=== PATIENT | male | born 1960 | race Caucasian/White ===

== ENCOUNTER 2019-07-28 11:54 | Emergency (ER) | payer OTHER, SELFPAY ==
[2019-07-28 12:03] VITALS: BP 150/102; PULSE 82; RESP 18; TEMP 36.9; O2SAT 97; BMI 27.1
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
[2019-07-28] MEDS: methylPREDNISolone (DEPO) 80 MG/ML INJ 1 mL IM (12:23)
[2019-07-28 15:12] VITALS: BP 157/107; PULSE 75; RESP 17; O2SAT 95
== END 2019-07-28 12:55 | disposition home or self-care (01) ==
LOC: ER 14:33
PROVIDERS: Emergency Provider Nurse Practitioner Family; Family Provider Internal Medicine
DX: S43.422A Sprain of left rotator cuff capsule, initial encounter (principal); X50.9XXA Other and unspecified overexertion or strenuous movements or postures, initial encounter
CPT/HCPCS: 12345; 96372; 96375; 99282; J1040

== ENCOUNTER → 2020-04-18 11:41 | Outpatient (BNVA) | payer OTHER, SELFPAY | PROVIDERS: Family Provider Internal Medicine; Visit Provider Specialist | DX: M19.012 Primary osteoarthritis, left shoulder (principal); M75.82 Other shoulder lesions, left shoulder | CPT/HCPCS: 73030 ==

== ENCOUNTER 2020-07-03 21:23 | Emergency (ER) | payer OTHER, SELFPAY ==
[2020-07-03 21:30] VITALS: BP 165/114; PULSE 85; RESP 18; TEMP 36.3; O2SAT 98; BMI 28.3
--- NOTE | 2020-07-03 21:54 | XR_ITS ---
WS: [id number] Right hand, 3 views, 07/03/2020 Clinical Data: injury Comparison: None. Findings: No fractures or dislocations are seen. The soft tissues are unremarkable. The joint space s are normal XR/XR hand RT min 3V* [id number] Impression: Negative right hand.
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
[2020-07-03] MEDS: HYDROcodone-acetaminophen 10-325 mg Tablet 1 TAB PO (22:10)
[2020-07-03] MEDS: tetanus-dipt-pertussis 0.5 mL SDV IM (22:10)
[2020-07-03] MEDS: neomycin-poly-bacitracin oint 0.9 gm Pkt 1 APPLIC TOPICAL (23:22)
[2020-07-03 23:23] VITALS: BP 165/10; PULSE 84; RESP 18; O2SAT 97
--- NOTE | 2020-07-04 13:03 | DCPLANNER ---
ecommerce merchandising manager had message to schedule a follow up appointment for patient with wound care. ecommerce merchandising manager called Wound Care, spoke with [facility], gave clinic patients information. ecommerce merchandising manager was told that a follow up appointment could not be scheduled for patient at this time, due to waiting on authorization from the [facility]. Patient has VA insurance, supportive employment case manager emailed [facility] with [facility], to let the [facility] know that patient was seen in the ER and that patient needed a follow up with wound care. When clinic gets the authorization then clinic will schedule a follow up appointment.
--- NOTE | 2020-07-11 11:11 | DCPLANNER ---
Patient had a follow up appointment scheduled for 07.10.20 with Wound Care - patient did attend appointment.
== END 2020-07-03 23:15 | disposition home or self-care (01) ==
PROVIDERS: Emergency Provider Emergency Medicine; PCP Internal Medicine
DX: T23.001A Burn of unspecified degree of right hand, unspecified site, initial encounter (principal); W86.8XXA Exposure to other electric current, initial encounter; Z23 Encounter for immunization
CPT/HCPCS: 73130; 90471; 90715; 99283

== ENCOUNTER 2020-07-10 10:00 | Outpatient (CLI) | payer OTHER, SELFPAY | END 2020-07-10 10:01 | disposition home or self-care (01) | LOC: WOUND 10:01 | PROVIDERS: PCP Internal Medicine; Visit Provider Thoracic Surgery (Cardiothoracic Vascular Surgery) | DX: T23.221A Burn of second degree of single right finger (nail) except thumb, initial encounter (principal); W86.8XXA Exposure to other electric current, initial encounter | CPT/HCPCS: 11042; G0463 ==

== ENCOUNTER 2020-07-12 11:40 | Outpatient (RCR) | payer OTHER, SELFPAY | END 2020-07-25 23:59 | disposition home or self-care (01) | LOC: SOT 11:40 | PROVIDERS: PCP Family Medicine; Referring Provider Nurse Practitioner Family; Visit Provider Nurse Practitioner Family | DX: T23.001D Burn of unspecified degree of right hand, unspecified site, subsequent encounter (principal) | CPT/HCPCS: 97110; 97165 ==

== ENCOUNTER 2020-07-17 10:16 | Outpatient (CLI) | payer OTHER, SELFPAY | END 2020-07-17 10:17 | disposition home or self-care (01) | LOC: WOUND 10:16 | PROVIDERS: PCP Family Medicine; Visit Provider Thoracic Surgery (Cardiothoracic Vascular Surgery) | DX: Z09 Encounter for follow-up examination after completed treatment for conditions other than malignant neoplasm (principal) | CPT/HCPCS: 99212 ==

== ENCOUNTER 2021-03-16 22:43 | Emergency (ER) | payer OTHER, SELFPAY ==
--- NOTE | 2021-03-16 22:45 | ECG_ITS ---
[facility] Test Date: 2021-03-16 Pat Name: Marcelo Schroeder Department: Room: Gender: Male Journalism Teacher: : 1960 Requested By: Meera Patel Order Number: [id number] Anni MD: Hetal Herron M.D. Measurements Intervals [place] Rate: 70 P: 50 [place]: 148 QRS: -18 QRSD: 103 T: 29 QT: 385 QTc: 417 Interpretive Statements SINUS RHYTHM INCOMPLETE RIGHT BUNDLE BRANCH BLOCK [90+ ms QRS DURATION, TERMINAL R IN V1/V2, 40+ ms S IN I/aVL/V4/V5/V6] MODERATE VOLTAGE CRITERIA FOR LVH, CONSIDER NORMAL VARIANT [MEETS CRITERIA IN ONE OF: R(aVL), S(V1), R(V5), R(V5/V6)+S(V1)] Compared to ECG 03/20/2019 00:32:25 Incomplete right bundle-branch block now present Electronically Signed On 03-17-2021 15:52:55 SECTION LABORER by Hetal Herron M.D. [id number]
--- NOTE | 2021-03-16 22:45 | XRR_ITS ---
PROCEDURE INFORMATION: Exam: XR Chest Exam date and time: 03/16/2021 10:45 PM Age: 60 years old Clinical indication: Pain; Chest pressure; Additional info: Cp TECHNIQUE: Imaging protocol: XR of the chest. Views: 1 view. COMPARISON: CR Chest 1 [place] [id number] 03/19/2019 11:10 PM FINDINGS: Lungs: Unremarkable. No consolidation. Pleural spaces: Unremarkable. No pleural effusion. No pneumothorax. Heart/Mediastinum: Cardiomegaly. Bones/joints: Unremarkable. XR/XR chest 1V portable [id number] IMPRESSION: Cardiomegaly, negative for infiltrate Radiation Dose CTDIVOL = (mGy): DLP = (mGy-cm)
[2021-03-16 22:46] VITALS: BP 167/105; PULSE 78; RESP 22; TEMP 37; O2SAT 98; BMI 29.0
--- NOTE | 2021-03-16 23:03 | ED_ITS ---
HPI - Chest Pain General: Chief Complaint: Chest Pain Stated Complaint: CHEST PAINS Time Seen by Provider: 03/16/21 22:59 Source: patient Mode of arrival: ambulatory Limitations: no limitations History of Present Illness: HPI narrative: 60-year-old male states that he is having chest pain tonight at 9 PM he states pain started left chest sharp pain that radiated to his left shoulder and jaw. Had some nausea denies any diaphoresis. He states he has had increased pain with deep inspiration. No history of heart disease or pulmonary embolism he does have a high blood pressur e. He denies any vomiting diarrhea states pain is currently a 6 out of 10. Associated symptoms: Deny abdominal pain, dyspnea, fever(s), nausea or vomiting Review of Systems Const: Denies: fever(s), chills, body aches or change in appetite Eyes: Denies: blurry vision or eye discomfort ENMT: Denies: throat pain or dental pain Card: Reports: chest pain Resp: Denies: dyspnea GI: Denies: abdominal pain, nausea, vomiting or diarrhea : Denies: dysuria Musc: Denies: neck pain or back pain Skin/Breast: Denies: rash Neuro: Denies: headache(s) Psych: Denies: depression Pool/Lymph: Denies: easy bruising All/Imm: Denies: urticaria PFSH ED PFSH: Social History Smoking and tobacco status: light tobacco smoker (chew not smoke) Alcohol intake: current Alcohol intake frequency: 0-2 Drinks per Day Physical Exam Const: COMMON NORMALS: no acute distress, patient oriented x3 and healthy appearing HENMT: COMMON NORMALS: normocephalic and atraumatic HEAD & SCALP: normocephalic and atraumatic Eye: COMMON NORMALS: Equal, round and reactive pupils present and EOMs intact bilaterally PUPIL: Yes Equal, round and reactive pupils present Neck/C-Spine: COMMON NORMALS: full ROM and supple Chest: COMMONS NORMALS: normal inspection of the chest and normal palpation of entire chest wall Resp: COMMON NORMALS: normal respiratory effort, No retractions, No use of accessory muscles and clear to auscultation bilaterally AUSCULTATION: clear to auscultation bilaterally Cardio: COMMON NORMALS: regular rate, regular rhythm and No murmurs present (Cardio) RATE: regular rate RHYTHM: regular rhythm GI: COMMON NORMALS: Normal to inspection, nondistended, normoactive bowel sounds present, Soft to palpation, non-tender and no masses PALPATION: Yes Soft to palpation Extremity: COMMON NORMALS: normal to inspection and full ROM Neuro: COMMON NORMALS: patient oriented x3, moves all extremities and no focal motor deficits Psych: COMMON NORMALS: mental status grossly normal, Normal thought process present and cooperative THOUGHT PROCESS: Normal thought process present Skin: COMMON NORMALS: no rashes or lesions noted and no wounds GENERAL SKIN EXAM: no rashes or lesions noted Course Vital Signs: Vital signs: Vital Signs Temperature 98.6 F 03/16/21 23:30 Pulse Rate 67 03/17/21 02:24 Respiratory Rate 16 03/17/21 02:24 Blood Pressure 141/94 03/17/21 02:24 Pulse Oximetry 100 03/17/21 02:24 MDM - Chest Pain MDM Narrative: Medical decision making narrative: Patient presents here with chest pain and feels much improved. Initial and repeat troponins along with D- dimer EKGs are all normal. He has no signs of acute coronary syndrome aortic dissection or pulmonary embolism. He feels much improved and is stable for discharge is to follow-up his PCP in 2 to 4 days and return if worsening he understands and agrees to plan. Lab Data: Labs: Lab Results 03/16/21 03/16/21 03/16/21 23:06 23:06 23:06 WBC 7.4 10^3/uL 10^3/ uL (4.0-10.0) RBC 5.32 10^6/uL H 10 ^6/uL (4.1-5.3) Hgb 16.0 g/dL g/dL (11.7-16.6) Hct 45.9 % % (42.0-52.0) MCV 86.3 fl fl (80-94) MCH 30.1 pg pg (28.0-34.0) MCHC 34.9 g/dL g/dL (30.0-36.0) RDW 12.1 % % (12.1-15.1) Plt Count 244 10^3/cmm 10^3 /cmm (130-400) MPV 9.5 fL fL (7.4-10.4) Neut % (Auto) 55.0 % % Lymph % (Auto) 32.9 % % [place] % (Auto) 7.1 % % Eos % (Auto) 4.2 % % Baso % (Auto) 0.7 % % Neut # (Auto) 4.08 10^3/uL 10^3 /uL (1.8-7.7) Lymph # (Auto) 2.4 10^3/uL 10^3/ uL (0.8-4.8) [place] # (Auto) 0.5 10^3/uL 10^3/ uL (0.2-0.9) Eos # (Auto) 0.3 10^3/uL 10^3/ uL (0.0-0.8) Baso # (Auto) 0.1 10^3/uL 10^3/ uL (0.0-0.1) Nucleated RBC % (a uto) 0 % % Nucleated RBCs # 0.0 /100WBC /100W BC D-Dimer Sodium 137 mmol/L mmol/L (136-145) Potassium 3.4 mmol/L L mmol /L (3.5-5.1) Chloride 102 mmol/L mmol/L (98-107) Carbon Dioxide 20 mmol/L L mmol/ L (22-29) Anion Gap 18.4 (5-19) BUN 11 mg/dL mg/dL (8-23) Creatinine 1.0 mg/dL mg/dL (0.7-1.2) GFR Calculation 76.0 mL/min L mL/ min (90-130) Glucose 126 mg/dL H mg/dL (65-115) Calculated Osmolal ity 285 mOsm/kg mOsm/ kg (285-295) Calcium 8.8 mg/dL mg/dL (8.5-10.5) Total Bilirubin 0.8 mg/dL mg/dL (0.15-1.2) AST 14 U/L U/L (0-40) ALT 16 U/L U/L (0-41) Alkaline Phosphata se 70 IU/L IU/L (40-130) Troponin T Baselin e 11 ng/L ng/L (0-15) Troponin T 120 Min [place] Troponin T Total Protein 6.6 g/dL g/dL (6.6-8.7) Albumin 4.3 g/dL g/dL (3.5-5.2) Globulin 2.3 g/dL g/dL (1.3-4.6) 03/16/21 03/17/21 23:06 01:13 WBC RBC Hgb Hct MCV MCH MCHC RDW Plt Count MPV Neut % (Auto) Lymph % (Auto) [place] % (Auto) Eos % (Auto) Baso % (Auto) Neut # (Auto) Lymph # (Auto) [place] # (Auto) Eos # (Auto) Baso # (Auto) Nucleated RBC % (a uto) Nucleated RBCs # D-Dimer <= 0.27 ug/mIFEU ug/mIFEU (0-0.59) Sodium Potassium Chloride Carbon Dioxide Anion Gap BUN Creatinine GFR Calculation Glucose Calculated Osmolal ity Calcium Total Bilirubin AST ALT Alkaline Phosphata se Troponin T Baselin e Troponin T 120 Min [place] 10.29 ng/L ng/L (0-15) Delta Troponin T -0.71 ABS# L ABS# (0-10) Total Protein Albumin Globulin EKG Data^: EKG 1: Attestation: I personally reviewed and interpreted this EKG as follows: EKG interpretation date: 03/16/21 EKG interpretation time: 22:50 Interpretation: nsr hr [address] or t wave abnormalities qrs 02 qtc 406 EKG 2: Attestation: I personally reviewed and interpreted this EKG as follows: EKG interpretation date: 03/16/21 EKG interpretation time: 23:07 Interpretation: nsr hr [address] or t wave abnormalities qrs 103 qtc 406 EKG 3: Attestation: I personally reviewed and interpreted this EKG as follows: EKG interpretation date: 03/17/21 EKG interpretation time: 00:50 Interpretation: nsr hr [address] or t wave abnormalities qrs 107 qtc 417 Discharge Plan Discharge Patient Disposition: Home Clinical Impression: Chest pain Qualifiers: Chest pain type: unspecified Qualified Code(s): R07.9 - Chest pain, unspecified Condition: Stable Prescriptions: No Action meloxicam 15 mg tablet 15 mg PO DAILY Qty: 30 RF: 0 lisinopril 20 mg tablet 20 mg PO DAILY RF: 0 tramadol 50 mg tablet 50 mg PO Q6H PRN (Reason: pain) Qty: 10 RF: 0 [place] 5-325 mg tablet 1 tab PO Q6H PRN (Reason: pain) Qty: 14 RF: 0 Discharge Orders: Discharge ED (Routine); Ordered 03/17/21 Ordered By: Meera Patel Referrals: Nancy Bryant MD [Primary Care Provider] - Discharge Diet: Advance as tolerated Discharge Activity: Resume usual activity Patient Instructions: Chest Pain (ED) Coding Level of Care Code ED 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
[2021-03-16 23:13] VITALS: BP 141/94; PULSE 71; RESP 18; O2SAT 99
[2021-03-16 23:15] VITALS: BP 141/94; PULSE 71; RESP 18; TEMP 37; O2SAT 99
[2021-03-16 23:16] LABS: Basophils # 0.1 10^3/uL (0.0-0.1); Basophils % 0.7 %; Eosinophils # 0.3 10^3/uL (0.0-0.8); Eosinophils % 4.2 %; Hematocrit 45.9 % (42.0-52.0); Lymphocytes # 2.4 10^3/uL (0.8-4.8); Lymphocytes % 32.9 %; Mean Corpuscular HGB Conc 34.9 g/dL (30.0-36.0); Mean Corpuscular Hemoglobin 30.1 pg (28.0-34.0); Mean Corpuscular Volume 86.3 fl (80-94); Mean Platelet Volume 9.5 fL (7.4-10.4); Monocytes # 0.5 10^3/uL (0.2-0.9); Monocytes % 7.1 %; Neutrophils # 4.08 10^3/uL (1.8-7.7); Nucleated Red Blood Cells % 0 %; Platelet Count 244 10^3/cmm (130-400); Red Blood Count 5.32 10^6/uL (4.1-5.3); Red Cell Distribution Width 12.1 % (12.1-15.1); White Blood Count 7.4 10^3/uL (4.0-10.0)
[2021-03-16] MEDS: aspirin 81 mg Chew Tablet 324 MG PO (23:29)
[2021-03-16] MEDS: nitroglycerin 0.4 mg sublingual Tablet SUBLINGUAL (23:29)
[2021-03-16 23:30] VITALS: BP 141/94; PULSE 71; RESP 18; TEMP 37; O2SAT 99
[2021-03-16 23:37] LABS: Troponin(5th) Baseline 11 ng/L (0-15)
[2021-03-16 23:40] LABS: Alanine Aminotransferase 16 U/L (0-41); Albumin Level 4.3 g/dL (3.5-5.2); Alkaline Phosphatase 70 IU/L (40-130); Anion Gap 18.4 (5-19); Aspartate Amino Transferase 14 U/L (0-40); Blood Urea Nitrogen 11 mg/dL (8-23); Calcium 8.8 mg/dL (8.5-10.5); Carbon Dioxide 20 mmol/L (22-29); Chloride 102 mmol/L (98-107); Globulin 2.3 g/dL (1.3-4.6); Glucose 126 mg/dL (65-115); Osmolality Calculated 285 mOsm/kg (285-295); Potassium 3.4 mmol/L (3.5-5.1); Sodium 137 mmol/L (136-145); Total Bilirubin 0.8 mg/dL (0.15-1.2); Total Protein 6.6 g/dL (6.6-8.7)
--- NOTE | 2021-03-17 00:03 | PC.NURSE ---
Pt. resting with eyes closed in room.
[2021-03-17 00:04] VITALS: BP 141/94; PULSE 67; RESP 20; O2SAT 97
[2021-03-17] MEDS: acetaminophen 325 mg Tablet 650 MG PO (00:22)
[2021-03-17 00:23] LABS: D Dimer <= 0.27 ug/mIFEU (0-0.59)
--- NOTE | 2021-03-17 00:45 | ECG_ITS ---
[facility] Test Date: 2021-03-17 Pat Name: Marcelo Schroeder Department: Room: Gender: Male Visual Artist: : 1960 Requested By: Meera Patel Order Number: [id number] Anni MD: Hetal Herron M.D. Measurements Intervals [place] Rate: 61 P: 48 [place]: 151 QRS: -9 QRSD: 107 T: 12 QT: 414 QTc: 418 Interpretive Statements SINUS RHYTHM INCOMPLETE RIGHT BUNDLE BRANCH BLOCK [90+ ms QRS DURATION, TERMINAL R IN V1/V2, 40+ ms S IN I/aVL/V4/V5/V6] MINIMAL VOLTAGE CRITERIA FOR LVH, CONSIDER NORMAL VARIANT [MEETS CRITERIA IN ONE OF: R(aVL), S(V1), R(V5), R(V5/V6)+S(V1)] Compared to ECG 03/20/2019 00:32:25 Incomplete right bundle-branch block now present Electronically Signed On 03-17-2021 15:55:10 SHANK SCOURER by Hetal Herron M.D. [id number]
[2021-03-17 01:39] LABS: Troponin 5 2HR 10.29 ng/L (0-15)
[2021-03-17 01:42] LABS: Troponin 5 2HR Delta -0.71 ABS# (0-10)
[2021-03-17 02:24] VITALS: BP 141/94; PULSE 67; RESP 16; O2SAT 100
== END 2021-03-17 02:27 | disposition home or self-care (01) ==
PROVIDERS: Emergency Provider Emergency Medicine; PCP Family Medicine
DX: R07.9 Chest pain, unspecified (principal); F17.220 Nicotine dependence, chewing tobacco, uncomplicated
CPT/HCPCS: 71045; 80053; 84484; 85025; 85378; 93005; 99284

== ENCOUNTER → 2021-08-29 14:07 | Outpatient (BNVA) | payer OTHER, SELFPAY | PROVIDERS: PCP Family Medicine; Visit Provider Internal Medicine | DX: R07.9 Chest pain, unspecified (principal); I10 Essential (primary) hypertension; F17.220 Nicotine dependence, chewing tobacco, uncomplicated; R58 Hemorrhage, not elsewhere classified | CPT/HCPCS: 80048; 83880; 85025; 99214 ==

== ENCOUNTER 2021-09-09 11:51 | Outpatient (CLI) | payer OTHER, SELFPAY ==
[2021-09-09 12:54] LABS: Prothrombin Time (Patient) 13.5 Seconds (12.0-15.1)
== END 2021-09-09 11:52 | disposition home or self-care (01) ==
LOC: LAB 11:53
PROVIDERS: PCP Family Medicine; Visit Provider Internal Medicine
DX: R58 Hemorrhage, not elsewhere classified (principal)
CPT/HCPCS: 85610

== ENCOUNTER 2021-09-11 08:54 | Outpatient (CLI) | payer OTHER, SELFPAY ==
[2021-09-11] VITALS (19 sets, daily range): BP systolic 104–140; BP diastolic 61–90; PULSE 54–72; RESP 11–22; TEMP 36.7; O2SAT 97; BMI 29.0
--- NOTE | 2021-09-11 09:36 | XACV_ITS ---
Exam Room: 2 Ht: 183 cm Wt: 97 kg BSA: 2.24 m2 Gender: Male : 1960 Any Known Allergies: Benadryl Exam Priority: Routine Procedure(s): Procedure Description: Diagnostic procedure Procedure Description: Left Heart Catheterization Procedure Description: Coronary Angiography Diagnostic Cath Status: Elective Diagnostic Findings * 61-year-old man with past medical history of hypertension has been referred for evaluation of chest pain. He was seen in the emergency room in February when he had chest pain and was recommended to undergo stress test. Patient says that he gets chest pain whenever he walks a certain distance. It radiates to the left arm. His functional capacity is decreasing and the discomfort is worsening over time. Plan for left heart cath with possible percutanous coronary intervention. * Left Main has no disease. * Circumflex has no disease. * Right Coronary Artery has no disease. * Proximal Left Anterior Descending: minimal 30% stenosis, CHINO: 3 flow. * 2nd Diagonal: minimal 30% stenosis, [place]: 3 flow. * Coronary angiography shows right dominance. Conclusions 1. Non-obstructive coronary artery disease. Recommendations * Aggressive risk factor modification. * Outpatient cardiology follow up in 4 weeks. Interventional RX Recommendation: medical therapy and/or counseling Diagnostic RX Recommendation: medical therapy and/or counseling Pressures Phase:Rest AO : 118 / 74 ( 91 ) @ 11:53:00 AM 119 / 55 ( 83 ) @ 11:53:00 AM LV : 127 / 1 / 13 @ 11:53:00 AM 130 / 3 / 16 @ 11:53:00 AM Valves Phase:DefaultPhase AV : 0.0 @ 10:58:54 AM 0.0 @ 10:58:54 AM AV Mean Gradient: 0.0 @ 10:58:54 AM Clinical Evaluation EBL: 5mL-10mL Procedural Details Procedure Consent Obtained. Pre-Procedure Time Out. Identified patient by full name and date of as verbalized by the patient/guarantor. Does the consent match the physician's order: Yes. Accurate & Complete Informed Consent: Yes. Inpatient/Outpatient History & Physical on Chart: Yes. If H&P is completed, is and addenduem needed: No; If yes, is the addendum complete: N/A. Visualize and Verify Site with Patient/Guarantor: N/A. Relevant Radiology Images available: Yes. The risks, benefits, and alternatives of sedation and/or procedure were discussed by physician. The patient agrees to continue. Procedure started. [facility] Clinical Fraility Score: 3: Managing Well. Operations Support Professionals Indications: New Onset Angina. Chest Pain Symptom Assessment: Typical Angina Symptoms. Cardiovascular Instability: No. Correct patient, site and procedure confirmed by cath team. PERRLA. Strong, equal hand finance director bilaterally. Lungs clear x 5 lobes. IV Site on Arrival: 18 gauge in the left anticubital. IV Fluids: 0.9% NaCl at KVO. 0 mL infused prior to laboratory scientist. Pre Procedural Pulses: bilateral dorsalis pedis was 3+. Pre Procedural Pulses: bilateral posterior tibial was 1+. Pre Procedural Pulses: bilateral radial was 3+. Oxygen started at 2liters/min via nasal canula. right groin was prepped with chloroprep then draped in the usual sterile fashion. right radial was prepped with chloroprep then draped in the usual sterile fashion. Physician notified. Baseline sample Acquired. HR: 57 BPM. Patient's family in CPRU. Dr. Velasco will update at completion of the procedure. Physician arrived. Physician scrubbed in. Physician scrubbed in. Correct Patient: Yes; Correct Procedure: Yes; Correct Site: Yes; Correct Patient Position: Yes; Correct Supplies: Yes; Dried Flammable Prep: Yes; Blood Products Available: N/A;. Immediate Pre-Procedure Time Out. Lidocaine 1% infiltrated to the right radial. Arterial access obtained. A 5 [place] islander TIG catheter in over wire. Multiple views taken of right coronary artery. Catheter redirected to the LCA. Multiple views taken of left coronary artery. Catheter redirected to the LV. EDP Sample taken: LV 127/1,13; HR: 70 BPM; SpO2: 92%. Pullback taken: LV 130/3,16; AO 118/74(91); Mean: 0mmHg, Peak to Peak: 0mmHg, SEP: 8sec/min; HR: 63 BPM; SpO2: 96%. Catheter removed over the standard wire. Dr. Velasco scrubbed out. A TR Band was successful obtaining hemostatsis at the Right Radial artery insertion site. TR band placed. Hemostasis obtained. Post Procedure: Pulses reassessed and unchanged. PERRLA. Strong, equal hand finance director bilaterally. No VTE prophylaxis required. Medication's Wasted: Lidocaine 1% = 7 mL. Medication's Wasted: Nitro = 49.8 mg. Medication's Wasted: Heparin = 1000 units. Total IV fluids: 50 mL. Post-op diagnosis: normal coronaries. Complications: none. Estimated blood loss: 5mL-10mL. Responsiveness - Normal response to verbal stimuli; alert and oriented, PERRLA. Airway - Unaffected, no intervention required; spontaneous ventilation. Circulation: W/N/L, pulses unchanged. Nausea/Vomiting: No. Procedure completed. Patient transferred by wheelchair to 1st floor. Vital chart was stopped. Access Site Site: Right Radial artery Sheath Size: 6 Fr Hemostasis Method: TR Band Hemostasis Success: Successful Procedure Medications Start: 10:47 AM Stop: 10:47 AM Medication: Versed Amount: 2 mg Route: I.V. Start: 10:47 AM Stop: 10:47 AM Medication: Fentanyl Amount: 50 mcg Route: I.V. Start: 10:47 AM Stop: 10:47 AM Medication: Nitrogylcerin Amount: 200 mcg Route: I.A. Start: 10:47 AM Stop: 10:47 AM Medication: Fentanyl Amount: 25 mcg Route: I.V. Start: 10:50 AM Stop: 10:50 AM Medication: Heparin Amount: 5000 units Route: I.V. Start: 10:50 AM Stop: 10:50 AM Medication: Fentanyl Amount: 25 mcg Route: I.V. I, the attending physician, have reviewed and verified all procedure medications. Yes, all medications given per verbal order History/Risk Factors Hypertension: Yes Dyslipidemia: No Peripheral Arterial Disease (PAD): No Myocardial Infarction (CA): No Obesity: Yes Renal Disease: No Tobacco Use: Current/Recent(w/in 1 year) Prior Interventions PCI: No CABG: No Valve Surgery: No Report Signatures Finalized by Adam Velasco MD on 09/22/2021 11:46 PM
--- NOTE | 2021-09-11 10:39 | W.PM.OPSUD ---
Surgery/Procedure H&P Update DATE OF PROCEDURE: September 11, 2021 DATE H&P PERFORMED: 08/29/21 H&P UPDATE INFORMATION: I have reviewed H&P completed within last 30 days, I have examined patient prior to procedure and No changes to prior documentation PREOP DIAGNOSIS: Worsening angina PRIMARY INDICATION FOR PROCEDURE: Worsening angina PLANNED PROCEDURE: Operation Date: 09/11/21 10:00 Proposed Procedures p Cardiac Catheterization(Left) - Adam Velasco M.D PATIENT REASSESSED PRIOR TO SEDATION, WITH NO CHANGE NOTED: Yes PHYSICAL EXAM: alert, oriented x 3, clear to auscultation bilaterally and regular rate & rhythm AIRWAY EVAL/ANESTHESIA PLAN: ASA III, Monitored Anesthesia, Local Anesthesia, Risks, benefits & alternatives of sedation and/or procedure discussed and Patient agrees to continue as planned
[2021-09-11] MEDS: sodium chloride 0.9% 1,000 ML 75 ML IV (11:45)
--- NOTE | 2021-09-11 16:05 | PC.NURSE ---
Discharge Note Patient discharged to home via private vehicle accompanied by . Discharge instructions reviewed with patient and/or registered representative. Mobile pharmacy medications and/or prescriptions provided. Belongings/home medications returned. Post angiogram homecare instructions discuss to pt. discharge papers provided. called centralized scheduling dept for pt's asking when he is going to have his echocardiogram schedule. Verified the schedule and pt is notified that it will be on october 04 at 11:15 am. pt verbalizes understanding.
== END 2021-09-11 16:05 ==
LOC: CCL 08:59 → CSU 11:11
PROVIDERS: PCP Family Medicine; Visit Provider Internal Medicine
DX: I25.10 Atherosclerotic heart disease of native coronary artery without angina pectoris (principal); I10 Essential (primary) hypertension; E78.5 Hyperlipidemia, unspecified; E66.9 Obesity, unspecified; Z68.29 Body mass index [BMI] 29.0-29.9, adult; Z79.82 Long term (current) use of aspirin; F17.220 Nicotine dependence, chewing tobacco, uncomplicated; Z82.49 Family history of ischemic heart disease and other diseases of the circulatory system
CPT/HCPCS: 36415; 93452; 93458; 96360; 99152; C1769; C1887; C1894; G0378; J1644; J2250; J3010; J3490; J7030; Q9967

== ENCOUNTER → 2021-09-25 12:52 | Outpatient (BNVA) | payer OTHER, SELFPAY | PROVIDERS: PCP Family Medicine; Visit Provider Internal Medicine | DX: Z09 Encounter for follow-up examination after completed treatment for conditions other than malignant neoplasm (principal); R07.9 Chest pain, unspecified; I10 Essential (primary) hypertension; F17.220 Nicotine dependence, chewing tobacco, uncomplicated | CPT/HCPCS: 99214 ==

== ENCOUNTER 2021-10-04 11:09 | Outpatient (CLI) | payer OTHER, SELFPAY ==
--- NOTE | 2021-10-04 11:15 | USCV_ITS ---
Marcelo Schroeder Age: 61 Gender: M : 1960 Exam Date: 10/04/2021 11:51 Ordering Phys: Adam Velasco M.D ([email or web address]) Technologist: Samuel Temple [place] [facility] [place]: sob BP: 140 / 76 HR: 59 Rhythm: Sinus Technical Quality: Adequate MEASUREMENTS (Male / Female) Normal Values 2D ECHO LV Diastolic Diameter PLAX 3.5 cm 4.2 - 5.9 / 3.9 - 5.3 cm LV Systolic Diameter PLAX 2.0 cm IVS Diastolic Thickness 1.1 cm 0.6 - 1.0 / 0.6 - 0.9 cm IVS Systolic Thickness 1.1 cm LVPW Diastolic Thickness 1.3 cm 0.6 - 1.0 / 0.6 - 0.9 cm LVPW Systolic Thickness 1.5 cm LVOT Diameter 2.0 cm LV Ejection Fraction 2D Teich 74.8 % LV Ejection Fraction MOD 2C 70.0 % LV Ejection Fraction 2C AL 70.7 % LA Diameter 3.5 cm LA Width 3.4 cm LA Height 4.0 cm RA Width 3.3 cm RA Height 4.1 cm Aorta at Sinotubular Diameter 2.6 cm IVC Diameter 1.6 cm M-MODE Aortic Annulus Diameter 2.7 cm LA Ao Ratio MM 1.2 MV E Point Septal Separation 0.4 cm DOPPLER AV Peak Velocity 113.7 cm/s LVOT Peak Velocity 104.0 cm/s AV Area Cont Eq vti 2.7 cm squared AV Area Cont Eq pk 3.0 cm squared MV Peak Velocity 87.0 cm/s MV Area PHT 4.1 cm squared Mitral E to A Ratio 0.9 MV E' Velocity 29.5 cm/s Mitral E to MV E' Ratio 7.7 Mitral E to LV E' Lateral Ratio 7.7 Mitral E to LV E' Septal Ratio 7.8 TR Peak Velocity 308.8 cm/s TR Peak Gradient 38.2 mmHg TR Mean Velocity 229.8 cm/s TR Mean Gradient 23.3 mmHg TR Velocity Time Integral 84.9 cm Right Atrial Pressure 3.0 mmHg Pulmonary Artery Systolic Pressu 41.2 mmHg RV Acceleration Time 0.2 s RV Ejection Time 0.2 s RV AcT/ET 0.9 FINDINGS Left Ventricle Normal left ventricular size. LV systolic function is normal with EF of 55-60%. No regional wall motion abnormalities. Grade 1 diastolic dysfunction Right Ventricle The right ventricle is normal in size and function. Right Atrium The right atrium is normal in size. Left Atrium The left atrium is normal in size. Mitral Valve Structurally normal mitral valve without significant stenosis or prolapse. There is trace mitral regurgitation. Aortic Valve Structurally normal aortic valve without significant sclerosis or stenosis. There is no aortic regurgitation. Tricuspid Valve Structurally normal tricuspid valve without significant stenosis. Mild tricuspid regurgitation. Insufficient TR jet to calculate RVSP Pulmonic Valve Not well visualized. Pericardium Normal pericardium without effusion. Aorta Normal ascending aorta dimension. IVC CONCLUSIONS LV systolic function is normal wtih EF of 55-60% Grade 1 diastolic dysfunction Trace mitral regurgitation Mild tricuspid regurgitation No comparison studies are available Adam Velasco MD (Electronically Signed) Final Date: 11 October 2021 22:06 S
== END 2021-10-04 11:10 | disposition home or self-care (01) ==
LOC: RAD 11:12
PROVIDERS: PCP Family Medicine; Visit Provider Internal Medicine
DX: R06.02 Shortness of breath (principal); I07.1 Rheumatic tricuspid insufficiency
CPT/HCPCS: 93306

== ENCOUNTER → 2022-07-18 14:47 | Outpatient (BNVA) | payer OTHER, SELFPAY | PROVIDERS: PCP Family Medicine; Referring Provider Family Medicine; Visit Provider Student in an Organized Health Care Education/Training Program | DX: M77.01 Medial epicondylitis, right elbow (principal); M77.02 Medial epicondylitis, left elbow; G56.23 Lesion of ulnar nerve, bilateral upper limbs; M79.641 Pain in right hand | CPT/HCPCS: 73080; 73130; 99204 ==

== ENCOUNTER → 2022-09-24 14:07 | Outpatient (BNVA) | payer OTHER, SELFPAY | PROVIDERS: PCP Family Medicine; Referring Provider Student in an Organized Health Care Education/Training Program; Visit Provider Specialist | DX: G56.23 Lesion of ulnar nerve, bilateral upper limbs (principal) | CPT/HCPCS: 95910; 95912 ==

== ENCOUNTER → 2022-10-10 07:22 | Outpatient (BNVA) | payer OTHER, SELFPAY | PROVIDERS: PCP Family Medicine; Visit Provider Student in an Organized Health Care Education/Training Program | DX: G56.21 Lesion of ulnar nerve, right upper limb (principal) | CPT/HCPCS: 99214 ==

== ENCOUNTER 2022-11-04 05:44 | Day surgery (SDC) | payer OTHER, SELFPAY ==
[2022-11-04] VITALS (8 sets, daily range): BP systolic 109–177; BP diastolic 79–108; PULSE 56–82; RESP 16–19; TEMP 36.1–36.2; O2SAT 94–97; BMI 28.2
[2022-11-04] MEDS: sodium chloride 0.9% 1,000 ML 30 ML IV (06:07)
[2022-11-04] MEDS: ketorolac 30 mg/mL INJ IVP (06:08)
[2022-11-04] MEDS: acetaminophen 1,000 MG/100 ML PIGGYBACK 400 MG IV (06:08)
--- NOTE | 2022-11-04 06:45 | W.PM.OPSUD ---
Surgery/Procedure H&P Update DATE OF PROCEDURE: November 04, 2022 DATE H&P PERFORMED: 10/10/22 CHANGES TO PREVIOUS DOCUMENTATION: None. No change from HPI from 10/10/2022. This point time patient has is right cubital tunnel syndrome. He understands risk benefits complication alternatives with surgery and plan will be to proceed with right cubital tunnel release with possible ulnar nerve transposition. All questions answered. PREOP DIAGNOSIS: Right cubital tunnel syndrome PRIMARY INDICATION FOR PROCEDURE: Right cubital tunnel syndrome PLANNED PROCEDURE: Operation Date: 11/04/22 07:00 Proposed Procedures p right cubital tunnel release? with possible ulnar nerve transposition 75402,G56.23(Right) - Viet Peres, DO s Ulnar Nerve Transposition(Right) - Viet Peres, DO
--- NOTE | 2022-11-04 06:48 | ANES.PREANE2 ---
Pre-Anesthetic Assessment Height/Weight: Height 1.85 m Weight 97.069 kg Temp Pulse Resp BP Pulse Ox O2 Del Method 97 F L 61 18 177/108 95 Room Air 11/04/22 05:56 11/04/22 05:56 11/04/22 05:56 11/04/22 05:56 11/04/22 05:56 11/04/22 05:56 Preop Diagnosis: Right cubital tunnel syndrome Operation Date: 11/04/22 07:00 Proposed Procedures p right cubital tunnel release? with possible ulnar nerve transposition 56082,G56.23(Right) - Viet Ringgold, DO s Ulnar Nerve Transposition(Right) - Viet Ringgold, DO Familial anesthetic complications: none Was Beta Mendel taken within 24 hours: N/A Was Clonidine taken within 24 hours: N/A Last intake: Intake Last Liquid Date 11/03/22 Last Liquid Time 21:00 Last Solid Date 11/03/22 Last Solid Time 10:30 Social No alcohol and No tobacco Exam alert, oriented x 3, clear to auscultation bilaterally and regular rate & rhythm Airway Mallampati: Class III Dentition: full CV/HEM Coronary Artery Disease and Hypertension Neuropsych Neuropathy Anesthetic Plan ASA status: 3 Anesthesia: MAC Risk of > 500 ml blood loss (7ml/kg in children): No Medications/Allergies Home Medications Medication Instructions Recorded Confirmed Last Taken Type tramadol 50 mg tablet 50 mg PO Q6H PRN pain #10 tabs 07/28/19 11/04/22 Unknown Rx ketoconazole 2 % topical cream 1 applic topical BID #60 grams 04/25/21 11/04/22 Unknown Rx acetaminophen 325 mg tablet 1,000 mg PO QID PRN pain 08/29/21 11/03/22 10/31/22 History (Tylenol) aspirin 81 mg tablet,delayed 81 mg PO DAILY 08/29/21 11/03/22 10/31/22 History release (Adult Low Dose Aspirin) isosorbide mononitrate 30 mg 30 mg PO DAILY #90 tabs 09/25/21 11/04/22 Unknown Rx tablet,extended release 24 hr lisinopril 20 mg tablet 40 mg PO DAILY #90 tabs 09/25/21 11/03/22 11/03/22 Rx meloxicam 7.5 mg tablet 7.5 mg PO DAILY 06/27/22 11/04/22 Unknown History Allergies Allergy/AdvReac Type Severity Reaction Status Date / Time diphenhydramine Allergy Unknown Verified 10/10/22 08:10 [From Benadryl] Current Medications Generic Name Dose Route Start Last Admin Trade Name Freq PRN Reason Stop Dose Admin Sodium Chloride 1,000 mls @ 30 mls/hr 11/04/22 06:00 11/04/22 06:07 Sodium Chloride 0.9% IV 11/05/22 05:59 30 mls/hr .Q24H TAIWO Administration PFS Anesthesia Medical History Hypertension Family History Mother Hypertension Brother Hypertension Social History Smoking and tobacco status: current every day smoker (chewing tobacco) smokeless tobacco Smokeless tobacco user: chewing tobacco Alcohol intake: current Alcohol intake frequency: 0-2 Drinks per Day Substance/Drug Use: never Data Anesthesia Cardiac Studies: Echocardiogram 10/04/21
[2022-11-04] MEDS: ceFAZolin 2,000 MG in sodium chloride 0.9% (plus) 50 ML 100 MG IV (06:55)
[2022-11-04] MEDS: lidocaine 2% INJ 20 mL INJECTION (07:23)
--- NOTE | 2022-11-04 08:52 | PC.NURSE ---
Awake and following directions. Right fingers pink and warm. Moving fingers without issue
--- NOTE | 2022-11-04 08:54 | PM.OP2 ---
Brief Operative Note Date of procedure: 11/04/22 Pre-op diagnosis: Right cubital tunnel syndrome Post-op diagnosis: same (With subluxating ulnar nerve) Procedure Done: Right cubital tunnel (ulnar nerve decompression) Right ulnar nerve neurolysis Right ulnar nerve transposition Surgeon: Viet Peres Estimated blood loss (mL): 10 Complications: None Post-op Plan: Patient taken to PACU in stable condition recovering well we will get him set up with OT hand therapy as he has a Martha drain on in place in a posterior splint we will have him in OT hand therapy this week for evaluation have [place] drain pulled. Nonweightbearing to right hand will encourage active gentle range of motion as well as nerve gliding exercises. She will follow-up in the orthopedic office in 2 weeks. Patient understands agrees with current plan. All questions answered. Condition: stable Disposition: same day Coding Level of Care Code Acute Code for [place] White
--- NOTE | 2022-11-04 08:57 | PM.PACU ---
PACU note Narrative: Patient seen and examined postoperatively. Pains controlled. Splint on in place clean dry and intact. He is able to wiggle fingers as well as finger abduction and abduction with appropriate strength. Still has some paresthesias on the ulnar nerve distribution secondary to cubital tunnel. Fingertips warm well-perfused brisk cap refill less than 2 seconds Exam: awake Disposition: discharged
--- NOTE | 2022-11-04 09:00 | PM.OP ---
Operative Report Date of procedure: November 04, 2022 Pre-op diagnosis: Preop Diagnosis Right cubital tunnel syndrome Procedure: Post-op diagnosis: Right cubital tunnel syndrome and subluxating ulnar nerve Post-op findings: See operative note Procedure done: Right cubital tunnel release(ulnar nerve decompression) Right ulnar nerve neurolysis Right ulnar nerve transposition Surgeon: Viet Peres DO Estimated blood loss: 10 cc Tourniquet Time: 49 minutes IV fluids: See anesthesia record Complications: None Findings: See operative report narrative Condition: stable Disposition: same day Brief History: Patient is a pleasant 62-year-old Male was seen evaluated in the outpatient setting for 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 Patient had EMG findings consistent with this.? On my examination in the office patient findings are consistent with this preoperative diagnosis. We had detailed discussion in office about continued nonoperative intervention versus operative intervention.? Patient understands the risk benefits complications alternatives to surgical and nonsurgical treatment options.? Patient understands the risks include but not limited to make it better, make it worse, infection, permanent injury to nerve, decreased function and sensation to the hand with persistent weakness.? Given these risks patient understands and agrees to proceed with current plan. Patient elects to proceed with a right cubital tunnel release and possible ulnar nerve transposition. all questions answered. Procedure: Patient was seen and evaluated in the preoperative holding area.? The consent that was filled out in office was reviewed with patient and confirmed to be appropriate for right ulnar nerve cubital tunnel release and possible ulnar nerve transposition.? Correct extremity was then marked.? Patient was seen evaluated by the preoperative team as well as anesthesia department.? Once cleared for surgery patient was then taken to the operative suite and transported onto the operative table all bony prominences were well-padded and patient was secured to the table.? Right upper extremity was placed on an armboard.? Patient then underwent anesthesia per the anesthesia department.?The right upper extremity tourniquet was applied. Patient's right upper extremity was then prepped and draped in standard orthopedic fashion.? i This point a final timeout was performed. Patient received appropriate preop antibiotics. Esmarch tourniquet was used to exsanguinate the operative extremity and was insufflated to 250 mmHg.? Standard curvilinear incision was made centering over the ulnar nerve between the medial epicondyle and olecranon process.? Sharp scalpel excision through skin and subcutaneous tissue was performed.? Once I encountered subcutaneous tissue I then utilized dissection scissors to spread in the path of the [facility] and care was made to protect any nerve branches throughout this case.? I then utilized a scalpel to complete my dissection directly on over to the flexor pronator mass and elevated this fat tissue directly off of the fascia.? I started my dissection of the ulnar nerve the nerve proximally. Once identified I then utilized Littler dissection scissors and decompress the nerve completely and proximally and utilized blunt dissection to make sure there was no entrapment proximally..? Once decompressed proximally I then traced the nerve distal through Thomas's ligament and as it entered the FCU fascia aponeurosis and completed by decompression and ulnar nerve neurolysis distally.? The nerve was completely released in situ no areas of entrapment I was able to place my finger distally and proximally with no areas entrapment along the nerve. At this point in time by in situ release was completed I then subsequently took the elbow through range of motion and subluxation was noted over the medial epicondyle and plan for ulnar nerve transposition was made.? I thoroughly irrigated the nerve throughout the case to prevent it from drying out. Of note the ulnar nerve had significant irritation and inflammation.? Next while protecting the nerve as well as care to not injure any venous structures I then excised the intermuscular septum proximally with bipolar electrocautery.? This allowed for there to be no entrapment proximally with my transposition.? Next I then performed my standard Z- flap into the fascia.? This created a large thick fascial band that would be sutured to secure the ulnar nerve when its been transposed.? Once the incision was made just through the fascia I then mobilized just the fascia and freed the muscle belly off of this.? I then sequentially excised the T and Y shaped fascial bands throughout the flexor pronator mass to prevent any type of bandage strip structure irritating the transposition.? At this point I had only soft tissue and muscle belly with which the ulnar nerve could rest.? I had to do a small excision of the muscle belly distally to create a nice trough for the nerve to lie.? At this point I then mobilized the nerve and this was transposed into the flexor pronator insertion under the fasica flaps.? There was no evidence of kinking/tethering of the nerve. this was significantly redundant and lax with no signs of tension or entrapment.? I then utilized a 3-0 Ethibond suture and approximated the fascia flaps that was created and the right knee okay okay secured with horizontal interrupted mattress stitches.? I was able to place 2 fingers under the repair with no evidence of entrapment and the elbow was taken through range of motion and no areas of entrapment or kinking were noted on the nerve and the nerve was redundant relaxed in all ranges of motion.? This completed my ulnar nerve decompression of the cubital tunnel as well as ulnar nerve transposition.? Wound bed was then thoroughly irrigated.? Tourniquet was deflated.? Maintained exact hemostasis with bipolar electrocautery.? I did place a vernon drain to prevent hematoma formation. As result the skin was reapproximated with interrupted Vicryl subcutaneous suture 3-0.? I next utilized a running horizontal mattress stitch with 3-0 nylon.? Extremity was then cleaned and the incision was then covered with Xeroform 4 x 4's ABD Curlex and soft roll and a posterior long-arm splint was then applied with an Obed wrap.? Patient was then awakened from anesthesia and taken to PACU in stable condition. Disposition: Patient taken to PACU in stable condition.? Patient given appropriate discharge instructions as well as pain medication.? We will get Patient in with OT hand therapy for splint takedown dressing change and drain pull in the next 2 days. Patient will see me in office in 2 weeks.? pt understands if they has any questions they can contact the office.
--- NOTE | 2022-11-04 09:29 | ANE.PACU2 ---
Inpatient post-anesthesia follow up: Airway intact: Yes Vital signs: Temperature 97.1 F Pulse Rate 57 Respiratory Rate 16 Blood Pressure 164/101 Pulse Oximetry 94 Oxygen Delivery Me thod Room Air Oxygen Flow Rate 2 Fraction of Inspir ed Oxygen Hydration adequate: Yes Nausea and vomiting: Yes Pain level: 1 Mental status: Baseline
[2022-11-04] MEDS: HYDROcodone-acetaminophen 5-325 mg Tablet 1 TAB PO (09:46)
== END 2022-11-04 09:57 | disposition home or self-care (01) ==
PROVIDERS: PCP Family Medicine; Visit Provider Student in an Organized Health Care Education/Training Program
PROC: (CPT 64718; principal; 2022-11-04 07:00)
PROC: (CPT 64718; 2022-11-04 07:00)
DX: I25.10 Atherosclerotic heart disease of native coronary artery without angina pectoris; I10 Essential (primary) hypertension; G62.9 Polyneuropathy, unspecified; Z79.82 Long term (current) use of aspirin; F17.290 Nicotine dependence, other tobacco product, uncomplicated; G56.21 Lesion of ulnar nerve, right upper limb
CPT/HCPCS: 64718; J0131; J0690; J1885; J2405; J2704; J2795; J3010; J7030

== ENCOUNTER 2022-11-06 10:17 | Outpatient (RCR) | payer OTHER, SELFPAY | END 2022-11-24 23:59 | disposition home or self-care (01) | LOC: SOT 10:17 | PROVIDERS: PCP Family Medicine; Visit Provider Student in an Organized Health Care Education/Training Program | DX: Z47.89 Encounter for other orthopedic aftercare (principal) | CPT/HCPCS: 97110; 97140; 97166; 97530; 97760; L3763 ==

== ENCOUNTER → 2022-11-18 09:10 | Outpatient (BNVA) | payer OTHER, SELFPAY | PROVIDERS: PCP Family Medicine; Visit Provider Student in an Organized Health Care Education/Training Program | DX: Z98.890 Other specified postprocedural states (principal) | CPT/HCPCS: 99024 ==

== ENCOUNTER 2022-11-25 06:00 | Outpatient (RCR) | payer OTHER, SELFPAY | END 2022-12-25 23:59 | disposition home or self-care (01) | LOC: SOT 06:00 | PROVIDERS: PCP Family Medicine; Visit Provider Student in an Organized Health Care Education/Training Program | DX: Z47.89 Encounter for other orthopedic aftercare (principal) | CPT/HCPCS: 97110; 97140 ==

== ENCOUNTER → 2023-01-06 10:04 | Outpatient (BNVA) | payer OTHER, SELFPAY | PROVIDERS: PCP Family Medicine; Visit Provider Student in an Organized Health Care Education/Training Program | DX: G56.21 Lesion of ulnar nerve, right upper limb (principal) | CPT/HCPCS: 99213 ==

== ENCOUNTER 2023-05-07 16:24 | Emergency (ER) | payer OTHER, SELFPAY ==
--- NOTE | 2023-05-07 16:28 | ECG_ITS ---
[facility] Test Date: 2023-05-07 Pat Name: Marcelo Schroeder Department: Room: Gender: Male Strap Stitcher: : 1960 Requested By: Shashi Segura Order Number: [id number] Anni MD: Hetal Herron M.D. Measurements Intervals [place] Rate: 102 P: 44 WI: 140 QRS: -27 QRSD: 98 T: 26 QT: 318 QTc: 415 Interpretive Statements SINUS TACHYCARDIA POSSIBLE LEFT ATRIAL ENLARGEMENT [-0.1mV P-WAVE IN V1/V2] BORDERLINE LEFT AXIS DEVIATION [QRS AXIS < -20] INCOMPLETE RIGHT BUNDLE BRANCH BLOCK [90+ ms QRS DURATION, TERMINAL R IN V1/V2, 40+ ms S IN I/aVL/V4/V5/V6] ABNORMAL RHYTHM ECG Compared to ECG 03/17/2021 00:50:24 Sinus rhythm no longer present Electronically Signed On 05-08-2023 13:42:00 AIRPLANE TUBE BUIL[employer] by Hetal Herron M.D. [id number]
[2023-05-07 16:31] VITALS: BP 117/78; PULSE 99; RESP 16; TEMP 35.7; O2SAT 100; BMI 29.5
[2023-05-07 16:56] VITALS: BP 119/75; PULSE 98; RESP 21; O2SAT 97
--- NOTE | 2023-05-07 16:57 | W.ED.CHESTPA ---
HPI - Chest Pain General: Chief Complaint: Chest Pain Stated Complaint: chest pain, sob Time Seen by Provider: 05/07/23 16:56 PFSH ED PFSH: Medical History Hypertension Family History Mother Hypertension Brother Hypertension Social History Smoking and tobacco/nicotine status: current every day tobacco/nicotine user (chewing tobacco) smokeless tobacco Smokeless tobacco user: chewing tobacco Alcohol intake: current Alcohol intake frequency: 0-2 Drinks per Day Substance/Drug Use: never Course Vital Signs: Vital signs: Vital Signs Temperature 96.3 F L 05/07/23 16:31 Pulse Rate 99 05/07/23 16:31 Respiratory Rate 16 05/07/23 16:31 Blood Pressure 117/78 05/07/23 16:31 Pulse Oximetry 100 05/07/23 16:31 Discharge Plan Discharge Condition: Stable Prescriptions: No Action ketoconazole 2 % cream 1 applic topical BID Qty: 60 2RF Rx Instructions: To feet x 4 weeks then prn aspirin [Adult Low Dose Aspirin] 81 mg tablet,delayed release (DR/EC) 81 mg PO DAILY acetaminophen [Tylenol] 325 mg tablet 1,000 mg PO QID PRN (Reason: pain) isosorbide mononitrate 30 mg tablet extended release 24 hr 30 mg PO DAILY Qty: 90 3RF lisinopril 20 mg tablet 40 mg PO DAILY Qty: 90 3RF meloxicam 7.5 mg tablet 7.5 mg PO DAILY tramadol 50 mg tablet 50 mg PO Q6H PRN (Reason: pain) Qty: 10 0RF Referrals: Nancy Bryant MD [Primary Care Provider] - Coding Level of Care Code ED Medical Laboratory Technician for [place] White
[2023-05-07 17:13] LABS: Basophils # 0.1 10^3/uL (0.0-0.1); Basophils % 0.6 %; Eosinophils # 0.2 10^3/uL (0.0-0.8); Eosinophils % 2.9 %; Hematocrit 47.7 % (37-53); Mean Corpuscular HGB Conc 35.2 g/dL (30-55); Mean Corpuscular Hemoglobin 30.5 pg (27-33); Mean Corpuscular Volume 86.7 fl (82-101); Mean Platelet Volume 9.6 fL (7.4-10.4); Monocytes # 0.4 10^3/uL (0.2-0.9); Monocytes % 4.7 %; Neutrophils # 5.19 10^3/uL (1.8-7.7); Neutrophils % 66.5 %; Nucleated Red Blood Cells % 0 %; Platelet Count 264 10^3/cmm (157-399); Red Cell Distribution Width 12.5 % (12.1-15.1); White Blood Count 7.81 10^3/uL (3.29-11.43)
--- NOTE | 2023-05-07 17:14 | XRR_ITS ---
PROCEDURE INFORMATION: Exam: XR Chest Exam date and time: 05/07/2023 5:18 PM Age: 62 years old Clinical indication: Chest wall pain; Additional info: Chest pain TECHNIQUE: Imaging protocol: Radiologic exam of the chest. Views: 1 view. COMPARISON: DX XR chest 2V* [id number] 08/16/2021 10:17 AM FINDINGS: Lungs: Unremarkable. No consolidation. Pleural spaces: Unremarkable. No pleural effusion. No pneumothorax. Heart/Mediastinum: Cardiac size is within normal limits, near the upper limits of normal with portable exam. Bones/joints: Visualized osseous structures show no acute abnormality. Other findings: No significant change with prior exam. XR/XR chest 1V portable [id number] IMPRESSION: No acute cardiopulmonary abnormality.
[2023-05-07] MEDS: aspirin 81 mg Chew Tablet 324 MG PO (17:30)
--- NOTE | 2023-05-07 17:38 | ED_ITS ---
HPI - Chest Pain 2 General: Chief Complaint: Chest Pain Stated Complaint: chest pain, sob Time Seen by Provider: 05/07/23 16:56 Source: patient Mode of arrival: ambulatory Limitations: no limitations History of Present Illness: 62-year-old male who states that he star autumn having chest pain roughly 2 hours ago. 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 States seem to be worse with movement of his arm. Denies any shortness of breath denies any nausea denies any history of heart disease. Associated symptoms: Deny abdominal pain, dyspnea, fever(s), nausea or vomiting Review of Systems 2 Const: Denies: fever(s), chills, body aches or change in appetite Eyes: Denies: blurry vision or eye discomfort ENMT: Denies: throat pain or dental pain Card: Reports: chest pain Resp: Denies: dyspnea GI: Denies: abdominal pain, nausea, vomiting or diarrhea : Denies: dysuria Musc: Denies: neck pain or back pain Skin/Breast: Denies: rash Neuro: Denies: headache(s) PFSH ED 2 PFSH: Medical History Hypertension Family History Mother Hypertension Brother Hypertension Social History Smoking and tobacco/nicotine status: current every day tobacco/nicotine user (chewing tobacco) smokeless tobacco Smokeless tobacco user: chewing tobacco Alcohol intake: current Alcohol intake frequency: 0-2 Drinks per Day Substance/Drug Use: never Physical Exam 2 Const: COMMON NORMALS: no acute distress, patient oriented x3 and healthy appearing HENMT: COMMON NORMALS: normocephalic and atraumatic HEAD & SCALP: n ormocephalic and atraumatic Eye: COMMON NORMALS: Equal, round and reactive pupils present and EOMs intact bilaterally PUPIL: Yes Equal, round and reactive pupils present Neck/C-Spine: COMMON NORMALS: full ROM and supple Chest: COMMONS NORMALS: normal inspection of the chest and normal palpation of entire chest wall Resp: COMMON NORMALS: normal respiratory effort, No retractions, No use of accessory muscles and clear to auscultation bilaterally AUSCULTATION: clear to auscultation bilaterally Cardio: COMMON NORMALS: regular rate, regular rhythm and No murmurs present (Cardio) RATE: regular rate RHYTHM: regular rhythm Extremity: COMMON NORMALS: normal to inspection and full ROM Neuro: COMMON NORMALS: patient oriented x3, moves all extremities and no focal motor deficits Psych: COMMON NORMALS: mental status grossly normal, Normal thought process present and cooperative THOUGHT PROCESS: Normal thought process present Skin: COMMON NORMALS: no rashes or lesions noted and no wounds GENERAL SKIN EXAM: no rashes or lesions noted Course 2 Vital Signs: Vital signs: Vital Signs Temperature 96.3 F L 05/07/23 16:31 Pulse Rate 81 05/07/23 19:26 Respiratory Rate 22 H 05/07/23 19:26 Blood Pressure 122/80 05/07/23 19:26 Pulse Oximetry 95 05/07/23 19:26 Oxygen Delivery Me thod Room Air 05/07/23 16:56 MDM - Chest Pain Medical Decision Making Patient presents for chest pains atypical in nature he is well-appearing here EKG blood work here is normal troponins no signs of acute coronary syndrome he has no signs of dissection or pulm embolism he is stable for discharge follow-up with PCP and return if worsening. Medical Records I reviewed the patient's medical records. Lab Data I reviewed the patient's lab results. 05/07/23 16:50 05/07/23 16:50 Radiology Impressions Chest X-Ray 05/07/23 17:14 IMPRESSION: No acute cardiopulmonary abnormality. Laboratory Results WBC 7.81 10^3/uL (3.29-11.43) 05/07/23 16:50 RBC 5.50 10^6/uL (3.85-5.65) 05/07/23 16:50 Hgb 16.80 g/dL (11.27-16.99) 05/07/23 16:50 Hct 47.7 % (37-53) 05/07/23 16:50 MCV 86.7 fl (82-101) 05/07/23 16:50 MCH 30.5 pg (27-33) 05/07/23 16:50 MCHC 35.2 g/dL (30-55) 05/07/23 16:50 RDW 12.5 % (12.1-15.1) 05/07/23 16:50 Plt Count 264 10^3/cmm (157-399) 05/07/23 16:50 MPV 9.6 fL (7.4-10.4) 05/07/23 16:50 Neut % (Auto) 66.5 % 05/07/23 16:50 Lymph % (Auto) 25.0 % 05/07/23 16:50 [place] % (Auto) 4.7 % 05/07/23 16:50 Eos % (Auto) 2.9 % 05/07/23 16:50 Baso % (Auto) 0.6 % 05/07/23 16:50 Neut # (Auto) 5.19 10^3/uL (1.8-7.7) 05/07/23 16:50 Lymph # (Auto) 2.0 10^3/uL (0.8-4.8) 05/07/23 16:50 [place] # (Auto) 0.4 10^3/uL (0.2-0.9) 05/07/23 16:50 Eos # (Auto) 0.2 10^3/uL (0.0-0.8) 05/07/23 16:50 Baso # (Auto) 0.1 10^3/uL (0.0-0.1) 05/07/23 16:50 Nucleated RBC % (auto) 0 % 05/07/23 16:50 Nucleated RBCs # 0.0 /100WBC 05/07/23 16:50 Sodium 140 mmol/L (136-145) 05/07/23 16:50 Potassium 4.6 mmol/L (3.5-5.1) 05/07/23 16:50 Chloride 104 mmol/L (98-107) 05/07/23 16:50 Carbon Dioxide 23 mmol/L (22-29) 05/07/23 16:50 Anion Gap 17.6 (5-19) 05/07/23 16:50 BUN 19 mg/dL (8-23) 05/07/23 16:50 Creatinine 1.4 mg/dL (0.7-1.2) H 05/07/23 16:50 GFR Calculation 51.2 mL/min (90-130) L 05/07/23 16:50 Glucose 98 mg/dL (65-115) 05/07/23 16:50 Calculated Osmolality 292 mOsm/kg (285-295) 05/07/23 16:50 Calcium 9.9 mg/dL (8.5-10.5) 05/07/23 16:50 Total Bilirubin 1.1 mg/dL (0.15-1.2) 05/07/23 16:50 AST 21 U/L (0-40) 05/07/23 16:50 ALT 24 U/L (0-41) 05/07/23 16:50 Alkaline Phosphatase 68 U/L (40-130) 05/07/23 16:50 Troponin T Baseline 13 ng/L (0-15) 05/07/23 16:50 Troponin T 120 Minute 11.63 ng/L (0-15) 05/07/23 18:50 Delta Troponin T -1.37 ABS# (0-10) L 05/07/23 18:50 NT-Pro-B Natriuret Pep < 36 pg/mL (0-125) 05/07/23 16:50 Total Protein 7.0 g/dL (6.6-8.7) 05/07/23 16:50 Albumin 4.5 g/dL (3.5-5.2) 05/07/23 16:50 Globulin 2.5 g/dL (1.3-4.6) 05/07/23 16:50 Lipase 44 U/L (13-60) 05/07/23 16:50 All radiology interpretation(s) finalized by discharge EKG Data EKG 1: I personally reviewed and interpreted this EKG as follows: EKG interpretation date: 05/07/23 EKG interpretation time: 16:28 Interpretation: sinus tach hr [address] elevation qrs 98 qtc 377 EKG 2: I personally reviewed and interpreted this EKG as follows: EKG interpretation date: 05/07/23 EKG interpretation time: 18:39 Interpretation: nsr hr [address] elevation qrs 102 qtc 394 Discharge Plan Discharge Patient Disposition: Home Clinical Impression: Chest pain Qualifiers: Chest pain type: unspecified Qualified Code(s): R07.9 - Chest pain, unspecified Condition: Stable Prescriptions: No Action ketoconazole 2 % cream 1 applic topical BID Qty: 60 2RF Rx Instructions: To feet x 4 weeks then prn aspirin [Adult Low Dose Aspirin] 81 mg tablet,delayed release (DR/EC) 81 mg PO DAILY acetaminophen [Tylenol] 325 mg tablet 1,000 mg PO QID PRN (Reason: pain) isosorbide mononitrate 30 mg tablet extended release 24 hr 30 mg PO DAILY Qty: 90 3RF lisinopril 20 mg tablet 40 mg PO DAILY Qty: 90 3RF meloxicam 7.5 mg tablet 7.5 mg PO DAILY tramadol 50 mg tablet 50 mg PO Q6H PRN (Reason: pain) Qty: 10 0RF Discharge Orders: Discharge ED (Routine); Ordered 05/07/23 Ordered By: Meera Patel Referrals: Nancy Bryant MD [Primary Care Provider] - 1-3 days Discharge Diet: Advance as tolerated Discharge Activity: Resume usual activity Patient Instructions: Chest Pain (ED) Coding Level of Care Code ED 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
[2023-05-07 17:45] LABS: Troponin(5th) Baseline 13 ng/L (0-15)
[2023-05-07 17:54] LABS: Alanine Aminotransferase 24 U/L (0-41); Albumin Level 4.5 g/dL (3.5-5.2); Alkaline Phosphatase 68 U/L (40-130); Anion Gap 17.6 (5-19); Aspartate Amino Transferase 21 U/L (0-40); Blood Urea Nitrogen 19 mg/dL (8-23); Calcium 9.9 mg/dL (8.5-10.5); Carbon Dioxide 23 mmol/L (22-29); Chloride 104 mmol/L (98-107); Globulin 2.5 g/dL (1.3-4.6); Glomerular Filtration Rate 51.2 mL/min (90-130); Glucose 98 mg/dL (65-115); Lipase 44 U/L (13-60); NT Pro B Type Natriuretic Pept < 36 pg/mL (0-125); Osmolality Calculated 292 mOsm/kg (285-295); Potassium 4.6 mmol/L (3.5-5.1); Sodium 140 mmol/L (136-145); Total Bilirubin 1.1 mg/dL (0.15-1.2)
[2023-05-07 18:13] VITALS: BP 117/85; PULSE 88; RESP 19; O2SAT 94
--- NOTE | 2023-05-07 18:39 | ECG_ITS ---
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 Measurements Intervals [place] Rate: 80 P: 54 MS: 149 QRS: -32 QRSD: 102 T: 17 QT: 358 QTc: 414 Interpretive Statements SINUS RHYTHM LEFT AXIS DEVIATION [QRS AXIS < -30] INCOMPLETE RIGHT BUNDLE BRANCH BLOCK [90+ ms QRS DURATION, TERMINAL R IN V1/V2, 40+ ms S IN I/aVL/V4/V5/V6] MODERATE VOLTAGE CRITERIA FOR LVH, CONSIDER NORMAL VARIANT [MEETS CRITERIA IN ONE OF: R(aVL), S(V1), R(V5), R(V5/V6)+S(V1)] Compared to ECG 03/17/2021 00:50:24 Left-axis deviation now present Electronically Signed On 05-08-2023 13:47:34 EMBOSSING PRESS OPERATOR APPRENTICE by Hetal Herron M.D. [id number]
[2023-05-07 19:25] LABS: Troponin 5 2HR 11.63 ng/L (0-15); Troponin 5 2HR Delta -1.37 ABS# (0-10)
[2023-05-07 19:26] VITALS: BP 122/80; PULSE 81; RESP 22; O2SAT 95
[2023-05-07 20:16] VITALS: BP 123/80; PULSE 89; O2SAT 97
== END 2023-05-07 19:45 | disposition home or self-care (01) ==
PROVIDERS: Nurse Practitioner Family; Emergency Provider Emergency Medicine; PCP Family Medicine
DX: R07.9 Chest pain, unspecified (principal); Z79.82 Long term (current) use of aspirin; I10 Essential (primary) hypertension; Z72.0 Tobacco use
CPT/HCPCS: 36415; 71045; 80053; 83690; 83880; 84484; 85025; 93005; 99285

== ENCOUNTER → 2023-07-03 10:43 | Outpatient (BNVA) | payer OTHER, SELFPAY | PROVIDERS: PCP Family Medicine; Visit Provider Nurse Practitioner Family | DX: L57.0 Actinic keratosis (principal); L82.1 Other seborrheic keratosis; L91.8 Other hypertrophic disorders of the skin; L81.4 Other melanin hyperpigmentation; L85.3 Xerosis cutis; L57.8 Other skin changes due to chronic exposure to nonionizing radiation; D22.5 Melanocytic nevi of trunk | CPT/HCPCS: 17000; 99214 ==

== ENCOUNTER → 2023-12-24 13:26 | Outpatient (BNVA) | payer OTHER, SELFPAY | PROVIDERS: PCP Family Medicine; Referring Provider Family Medicine; Visit Provider Internal Medicine | DX: R07.9 Chest pain, unspecified (principal); I10 Essential (primary) hypertension; Z72.0 Tobacco use | CPT/HCPCS: 93005; 99214 ==

== ENCOUNTER → 2024-06-22 08:26 | Outpatient (BNVA) | payer OTHER, SELFPAY | PROVIDERS: PCP Family Medicine; Visit Provider Student in an Organized Health Care Education/Training Program | DX: M65.342 Trigger finger, left ring finger (principal); G56.22 Lesion of ulnar nerve, left upper limb | CPT/HCPCS: 99214 ==

== ENCOUNTER → 2024-07-04 09:38 | Outpatient (BNVA) | payer OTHER, SELFPAY | PROVIDERS: PCP Family Medicine; Visit Provider Nurse Practitioner Family | DX: L81.4 Other melanin hyperpigmentation (principal); L57.8 Other skin changes due to chronic exposure to nonionizing radiation; D22.5 Melanocytic nevi of trunk; L82.1 Other seborrheic keratosis; L57.0 Actinic keratosis | CPT/HCPCS: 17000; 99213 ==

== ENCOUNTER 2024-07-19 09:47 | Day surgery (SDC) | payer OTHER, SELFPAY ==
[2024-07-19] VITALS (8 sets, daily range): BP systolic 114–146; BP diastolic 74–90; PULSE 53–61; RESP 16–20; TEMP 36.1–36.6; O2SAT 93–98
[2024-07-19] MEDS: sodium chloride 0.9% 1,000 ML 30 ML IV (10:20)
[2024-07-19] MEDS: acetaminophen 1,000 MG/100 ML PIGGYBACK 400 MG IV (10:29)
[2024-07-19] MEDS: ketorolac 30 mg/mL INJ IVP (10:30)
--- NOTE | 2024-07-19 11:06 | ANES.PREANE2 ---
Pre-Anesthetic Assessment Height/Weight: Height 6 ft Weight 208 lb Temp Pulse Resp BP Pulse Ox O2 Del Method 97.1 F L 59 L 18 146/90 97 Room Air 07/19/24 10:10 07/19/24 10:10 07/19/24 10:10 07/19/24 10:10 07/19/24 10:10 07/19/24 10:10 Preop Diagnosis: Carpal tunnel syndrome Operation Date: 07/19/24 12:00 Proposed Procedures p Left Trigger Finger Release(Left) - Viet Ellsworth, DO s Left Cubital Tunnel Release w/ Possible ulnar nerve transposition(Left) - Viet Larisa, DO s possibel Ulnar Nerve Transposition(Left) - Viet Ellsworth, DO Was Beta Mendel taken within 24 hours: N/A Was Clonidine taken within 24 hours: N/A Last intake: Intake Last Liquid Date 07/18/24 Last Liquid Time 21:45 Last Solid Date 07/18/24 Last Solid Time 21:45 Social No alcohol and No tobacco Exam alert, oriented x 3, clear to auscultation bilaterally and regular rate & rhythm Airway Submandibular: within normal limits Cervical ROM: within normal limits Mallampati: Class II Dentition: full Anesthetic Plan ASA status: 3 Anesthesia: MAC and Regional (specify below) Other: No prior issues with anesthesia NPO since yesterday evening History of hypertension on hydrochlorothiazide and lisinopril. Preop BP 146/90 Labs reviewed and acceptable for surgery EKG showing sinus rhythm with RBBB Plan for MAC anesthesia with preop nerve block Risk of > 500 ml blood loss (7ml/kg in children): Yes, adequate IV access and fluids planned Medications/Allergies Home Medications ?Medication ?Instructions ?Recorded ?Confirmed ?Last Taken ?Type acetaminophen 325 mg tablet 1,000 mg PO QID PRN pain 08/29/21 07/18/24 10/31/22 History (Tylenol) aspirin 81 mg tablet,delayed 81 mg PO DAILY 08/29/21 07/18/24 07/06/24 History release (Adult Low Dose Aspirin) lisinopril 20 mg tablet 40 mg (2 x 20 mg) PO DAILY #90 tabs 09/25/21 07/18/24 07/18/24 Rx hydrochlorothiazide 25 mg tablet 25 mg PO DAILY 12/24/23 07/18/24 07/18/24 History calcium 600 mg capsule 1,250 mg PO .WEEKLY 07/18/24 07/18/24 07/17/24 History Allergies Allergy/AdvReac Type Severity Reaction Status Date / Time diphenhydramine (From Allergy Unknown Verified 07/18/24 15:27 Benadryl) Current Medications Generic Name Dose Route Start Last Admin Trade Name Freq PRN Reason Stop Dose Admin Sodium Chloride 1,000 mls @ 30 mls/hr 07/19/24 10:00 07/19/24 10:20 Sodium Chloride 0.9% IV 30 mls/hr .Q24H TAIWO Administration PFSH Anesthesia Medical History Hypertension Family History Mother Hypertension Brother Hypertension Social History Smoking and tobacco/nicotine status: current every day tobacco/nicotine user smokeless tobacco Smokeless tobacco user: chewing tobacco Alcohol intake: current Alcohol intake frequency: 0-2 Drinks per Day Substance/Drug Use: never Data Anesthesia Cardiac Studies: Echocardiogram 10/04/21
--- NOTE | 2024-07-19 11:40 | ANES.PROC ---
Anesthesia Procedures Procedure/Date: 07/19/24 Nerve Block ^: Nerve Block 1: Main Anesthesia: other (100mcg fentanyl) Time Out Performed: Yes Consent: requested by attending/covering physician and from patient Nerve block location: supraclavicular Anesthesia monitors applied: pulse oximetry, EKG, BP cuff and oxygen Nerve block position: supine Anesthetic Used: ropivicaine 0.5% Amount of anesthesia used (mL): 30 Ultrasound used to: recognize landmarks Nerve Stimulator Used?: Yes Interscalene/Femoral BLK: other needle (pjunk 4inch) Injection: neg aspiration of heme Patient Tolerated Procedure: well Complications: none Additional Comments: decadron 4mg added to block
--- NOTE | 2024-07-19 12:06 | W.PM.OPSUD ---
Surgery/Procedure H&P Update DATE OF PROCEDURE: July 19, 2024 DATE H&P PERFORMED: 06/22/24 H&P UPDATE INFORMATION: I have reviewed H&P completed within last 30 days, I have examined patient prior to procedure and No changes to prior documentation PREOP DIAGNOSIS: Left ring finger trigger, left cubital tunnel PRIMARY INDICATION FOR PROCEDURE: Left ring finger trigger, left cubital tunnel syndrome PLANNED PROCEDURE: Operation Date: 07/19/24 12:00 Proposed Procedures p Left Trigger Finger Release(Left) - DO kaila Koroma Left Cubital Tunnel Release w/ Possible ulnar nerve transposition(Left) - DO kaila Koroma possibel Ulnar Nerve Transposition(Left) - Viet Peres DO
[2024-07-19] MEDS: ceFAZolin 2,000 MG in sodium chloride 0.9% (plus) 50 ML 100 MG IV (12:13)
--- NOTE | 2024-07-19 13:25 | W.PM.BPON ---
Date of Procedure: 07/19/2024 Surgeon: Viet Peres DO Concrete Puddler(s): None Procedure(s) performed: Left ring finger trigger release Left cubital tunnel release Left elbow ulnar nerve transposition Findings of the procedure(s): Patient was found to have a left ring finger trigger underwent release as planned without issues or complication subsequent underwent left cubital tunnel release patient already had a subluxating and unstable ulnar nerve over the medial epicondyle underwent an ulnar nerve transposition Toller procedure well without issues or complications taken back to PACU stable condition with splint on in place. Estimated blood loss: 15 mL Specimen(s) removed: None Post-operative diagnosis: Left ring finger trigger, left cubital tunnel syndrome with subluxating ulnar nerve
--- NOTE | 2024-07-19 13:26 | P.OP_ITS ---
Operative Report Date of procedure: July 19, 2024 Surgeon: Viet Peres DO Procedure: Preop Diagnosis Left cubital tunnel syndrome , left ring finger trigger Procedure: Post-op diagnosis: Left cubital tunnel syndrome and subluxating ulnar nerve, left ring finger trigger Post-op findings: See operative note Procedure done: Left ring finger trigger release Left cubital tunnel release(ulnar nerve decompression) Left ulnar nerve neurolysis Left ulnar nerve transposition Surgeon: Viet Peres DO Estimated blood loss: 15 cc Tourniquet Time: 36 minutes IV fluids: See anesthesia record Complications: None Findings: See operative report narrative Condition: stable Disposition: same day Brief History: Patient is a pleasant 63-year-old Male was seen evaluated in the outpatient setting for Left ulnar nerve neuropathy at the elbow, and left ring finger trigger.? Patient had nerve conduction study findings consistent with normal- appearing ulnar nerve was positive on my examination in the office patient findings are consistent with this preoperative diagnosis. We had detailed discussion in office about continued nonoperative intervention versus operative intervention.? Patient understands the risk benefits complications alternatives to surgical and nonsurgical treatment options.? Patient understands the risks include but not limited to make it better, make it worse, infection, permanent injury to nerve, decreased function and sensation to the hand with persistent weakness.? Given these risks patient understands and agrees to proceed with current plan. Patient elects to proceed with a Left cubital tunnel release and possible ulnar nerve transposition, and left ring finger trigger release. all questions answered. Procedure: Patient was seen and evaluated in the preoperative holding area.? The consent that was filled out in office was reviewed with patient and confirmed to be appropriate for Left ulnar nerve cubital tunnel release and possible ulnar nerve transposition, and left ring finger trigger release.? Correct extremity was then marked.? Patient was seen evaluated by the preoperative team as well as anesthesia department.? Once cleared for surgery patient was then taken to the operative suite and transported onto the operative table all bony prominences were well-padded and patient was secured to the table.? Left upper extremity was placed on an armboard.? Patient then underwent anesthesia per the anesthesia department.?The Left upper extremity tourniquet was applied. Patient's Left upper extremity was then prepped and draped in standard orthopedic fashion.? This point a final timeout was performed. Patient received appropriate preop antibiotics. Esmarch tourniquet was used to exsanguinate the operative extremity and was insufflated to 250 mmHg.? I started with the trigger release procedure first attention was made towards the left ring finger trigger. A standard oblique incision was made centering over the A1 greta following patient's flexor crease. Sharp scalpel incision was made only through skin and then switched to Littler dissection scissors and spread longitudinally directly over the flexor tendon sheath. I then mobilized both radially and ulnarly and Kasdan retractors were used and placed by my cafeteria assistant to protect neurovascular bundle. Next I visualized the A1 greta and this was incised with a scalpel. I then switched to dissection scissors and released the A1 greta both proximally as well as distally to its entirety. Significant tendon sheath fluid was noted consistent with inflammation. Mild fraying of the flexor tendons noted but no tear. At this point I utilized a rag nail and pulled the tendons FDS and FDP out of the incision and no triggering was noted. Patient's finger was taken through range of motion and no mechanical triggering was noted. This completed the trigger release procedure and subsequently moved forward with the left cubital tunnel release. Standard curvilinear incision was made centering over the ulnar nerve between the medial epicondyle and olecranon process.? Sharp scalpel excision through skin and subcutaneous tissue was performed.? Once I encountered subcutaneous tissue I then utilized dissection scissors to spread in the path of the [facility] and care was made to protect any nerve branches throughout this case.? I then utilized a scalpel to complete my dissection directly on over to the flexor pronator mass and elevated this fat tissue directly off of the fascia.? I started my dissection of the ulnar nerve the nerve proximally. Once identified I then utilized Littler dissection scissors and decompress the nerve completely and proximally and utilized blunt dissection to make sure there was no entrapment proximally..? Once decompressed proximally I then traced the nerve distal through Thomas's ligament and as it entered the FCU fascia aponeurosis and completed by decompression and ulnar nerve neurolysis distally.? On disse cting the nerve immediately I did notice it was resting on the medial epicondyle and already had evidence of instability on my initial dissection. The nerve was completely released in situ no areas of entrapment I was able to place my finger distally and proximally with no areas entrapment along the nerve. At this point in time by in situ release was completed I then subsequently took the elbow through range of motion and subluxation was noted over the medial epicondyle and plan for ulnar nerve transposition was made.? I thoroughly irrigated the nerve throughout the case to prevent it from drying out. Of note the ulnar nerve had significant irritation and inflammation.? Next while protecting the nerve as well as care to not injure any venous structures I then excised the intermuscular septum proximally with bipolar electrocautery.? This allowed for there to be no entrapment proximally with my transposition.? Next I then performed my standard Z- flap into the fascia.? This created a large thick fascial band that would be sutured to secure the ulnar nerve when its been transposed.? Once the incision was made just through the fascia I then mobilized just the fascia and freed the muscle belly off of this.? I then sequentially excised the T and Y shaped fascial bands throughout the flexor pronator mass to prevent any type of bandage strip structure irritating the transposition.? At this point I had only soft tissue and muscle belly with which the ulnar nerve could rest.? I had to do a small excision of the muscle belly distally to create a nice trough for the nerve to lie.? At this point I then mobilized the nerve and this was transposed into the flexor pronator insertion under the fasica flaps.? There was no evidence of kinking/tethering of the nerve. this was significantly redundant and lax with no signs of tension or entrapment.? I then utilized a 3-0 Ethibond suture and approximated the fascia flaps that was created and the Left knee okay okay secured with horizontal interrupted mattress stitches.? I was able to place 2 fingers under the repair with no evidence of entrapment and the elbow was taken through range of motion and no areas of entrapment or kinking were noted on the nerve and the nerve was redundant relaxed in all ranges of motion.? This completed my ulnar nerve decompression of the cubital tunnel as well as ulnar nerve transposition.? Wound bed was then thoroughly irrigated.? Tourniquet was deflated.? Maintained exact hemostasis with bipolar electrocautery.? I did place a vernon drain to prevent hematoma formation. As result the skin was reapproximated with interrupted Vicryl subcutaneous suture 3-0.? I next utilized a running horizontal mattress stitch with 3-0 nylon.? Extremity was then cleaned and the incision was then covered with Xeroform 4 x 4's ABD Curlex and soft roll and a posterior long-arm cubital splint was then applied with an Obed wrap.? Patient was then awakened from anesthesia and taken to PACU in stable condition. Disposition: Patient taken to PACU in stable condition.? Patient given appropriate discharge instructions as well as pain medication.? We will get Patient in with OT hand therapy for splint takedown dressing change and drain pull in the next 1-3days. Patient will see ortho in office in 2 weeks.? pt understands if they has any questions they can contact the office.
--- NOTE | 2024-07-19 14:45 | ANE.PACU2 ---
Inpatient post-anesthesia follow up: Airway intact: Yes Vital signs: Temperature 97.8 F Pulse Rate 57 Respiratory Rate 16 Blood Pressure 130/83 Pulse Oximetry 97 Oxygen Delivery Me thod Room Air Oxygen Flow Rate Fraction of Inspir ed Oxygen Hydration adequate: Yes Nausea and vomiting: No Pain level: 1 Mental status: Baseline
== END 2024-07-19 14:45 | disposition home or self-care (01) ==
PROVIDERS: PCP Family Medicine; Visit Provider Student in an Organized Health Care Education/Training Program
PROC: (CPT 26055; principal; 2024-07-19 12:00)
PROC: (CPT 64718; 2024-07-19 12:00)
PROC: (CPT 64718; 2024-07-19 12:00)
DX: G56.22 Lesion of ulnar nerve, left upper limb (principal); M65.342 Trigger finger, left ring finger; I10 Essential (primary) hypertension; F17.220 Nicotine dependence, chewing tobacco, uncomplicated; Z79.899 Other long term (current) drug therapy; I45.10 Unspecified right bundle-branch block; Z79.82 Long term (current) use of aspirin
CPT/HCPCS: 64718; 26055; J0131; J0690; J1885; J2704; J3010; J7030; J9999

== ENCOUNTER 2024-07-21 13:41 | Outpatient (RCR) | payer OTHER, SELFPAY | END 2024-07-25 23:59 | disposition home or self-care (01) | LOC: SOT 13:41 | PROVIDERS: Visit Provider Student in an Organized Health Care Education/Training Program | DX: G56.22 Lesion of ulnar nerve, left upper limb (principal); Z48.811 Encounter for surgical aftercare following surgery on the nervous system | CPT/HCPCS: 97530; 97760; L3763 ==

== ENCOUNTER 2024-07-26 06:00 | Outpatient (RCR) | payer OTHER, SELFPAY | END 2024-08-24 23:59 | disposition home or self-care (01) | LOC: SOT 06:00 | PROVIDERS: PCP Family Medicine; Visit Provider Student in an Organized Health Care Education/Training Program | DX: G56.22 Lesion of ulnar nerve, left upper limb (principal) | CPT/HCPCS: 97110; 97140 ==

== ENCOUNTER → 2024-08-02 10:23 | Outpatient (BNVA) | payer OTHER, SELFPAY | PROVIDERS: PCP Family Medicine; Visit Provider Physician Assistant | DX: Z98.890 Other specified postprocedural states (principal) | CPT/HCPCS: 99024 ==

== ENCOUNTER 2024-08-25 05:00 | Outpatient (RCR) | payer OTHER, SELFPAY | END 2024-09-24 23:59 | disposition home or self-care (01) | LOC: SOT 05:00 | PROVIDERS: PCP Family Medicine; Visit Provider Student in an Organized Health Care Education/Training Program | DX: G56.22 Lesion of ulnar nerve, left upper limb (principal) | CPT/HCPCS: 97110 ==

== ENCOUNTER → 2024-09-13 10:15 | Outpatient (BNVA) | payer OTHER, SELFPAY | PROVIDERS: PCP Family Medicine; Visit Provider Physician Assistant | DX: M65.331 Trigger finger, right middle finger (principal); Z98.890 Other specified postprocedural states | CPT/HCPCS: 20600; 99213; J3301; J3490 ==

== ENCOUNTER 2024-10-12 21:29 | Emergency (ER) | payer OTHER, SELFPAY ==
[2024-10-12 21:33] VITALS: BP 180/105; PULSE 71; RESP 16; TEMP 36.3; O2SAT 95
--- NOTE | 2024-10-12 21:47 | XRR_ITS ---
PROCEDURE INFORMATION: Exam: XR Right Knee Exam date and time: 10/12/2024 10:10 PM Age: 64 years old Clinical indication: Injury or trauma; Fall; Blunt trauma; Knee; Right; Additional info: Fall, pain TECHNIQUE: Imaging protocol: Radiologic exam of the right knee. Views: 3 views. COMPARISON: No relevant prior studies available. FINDINGS: Bones/joints: Normal. Soft tissues: Normal. Vasculature: Scattered vascular calcifications. XR/XR knee RT 3V* [id number] IMPRESSION: 1. No acute findings. 2. Scattered vascular calcifications.
--- NOTE | 2024-10-12 23:19 | ED_ITS ---
HPI - Extremity Problem General: Chief complaint: Extremity Injury, Lower Stated complaint: right knee pain Time Seen by Provider: 10/12/24 22:30 Source: patient Mode of arrival: ambulatory Limitations: no limitations History of Present Illness: 64yo male presents with right knee pain. Patient reports he tripped over his animal, twisted, and fell on the gravel. States this occurred this afternoon. Reports that the pain is to the outside lower aspect of the right knee. He does have increased pain with extension of the leg as well as with flexion and rotation. Patient is able to bear weight, but does have increased discomfort with it. He reports that the pain has increased since onset this afternoon. He denies previous knee surgery or any other concerns at this time. Associated symptoms: Deny fever(s) Related Data Home Medications ?Medication ?Instructions ?Recorded ?Confirmed acetaminophen 325 mg tablet 1,000 mg PO QID PRN pain 0 08/29/21 09/13/24 (Tylenol) Held on 07/19/24. Instructions: Resume on 07/26/24. aspirin 81 mg tablet,delayed 81 mg PO DAILY 08/29/21 0 09/13/24 release (Adult Low Dose Aspirin) hydrochlorothiazide 25 mg tablet 25 mg PO DAILY 09/13/24 calcium 600 mg capsule 1,250 mg PO .WEEKLY 07/18/24 09/13/24 Previous Rx's ?Medication ?Instructions ?Recorded lisinopril 20 mg tablet 40 mg (2 x 20 mg) PO DAILY # 90 tabs 09/25/21 Allergies Allergy/AdvReac Type Severity Reaction Status Date / Time diphenhydramine (From Allergy Unknown Verified 10/12/24 21:38 Benadryl) Review of Systems Const: Denies: fever(s), chills or body aches Musc: Reports: joint pain (right knee) [facility] ED PFSH: Medical History Hypertension Family History Mother Hypertension Brother Hypertension Social History Smoking and tobacco/nicotine status: never used tobacco/nicotine Alcohol intake: current Alcohol intake frequency: 0-2 Drinks per Day Substance/Drug Use: never Physical Exam Const: COMMON NORMALS: no acute distress, patient oriented x3 and alert GENERAL APPEARANCE: cooperative ORIENTATION/CONSCIOUSNESS: Yes awake OTHER: Patient is ambulatory to vertical flow recliner unassisted. He is able to give history with no difficulty. He is interactive with exam appropriately. No eileen jyotsna is at bedside at time of exam HENMT: COMMON NORMALS: normocephalic and atraumatic HEAD & SCALP: norm ocephalic and atraumatic Chest: CHEST: Yes Symmetrical chest wall rise Resp: COMMON NORMALS: normal respiratory effort EFFORT & INSPECTION: Yes able to speak in complete sentences Extremity: RIGHT LOWER EXTREMITY: Yes knee joint Right knee: Yes inspection (No ecchymosis, abrasion, laceration noted), Yes palpation (point ttp to fibula head) and Yes ROM (pain with extension and flexion) Neuro: COMMON NORMALS: patient oriented x3 SENSORIUM/ORIENTATION: Yes alert Psych: COMMON NORMALS: cooperative Course Vital Signs: Vital signs: Vital Signs Temperature 97.4 F L 10/12/24 21:33 Pulse Rate 71 10/12/24 21:33 Respiratory Rate 16 10/12/24 21:33 Blood Pressure 180/105 10/12/24 21:33 Pulse Oximetry 95 10/12/24 21:33 Oxygen Delivery Me thod Room Air 10/12/24 21:33 MDM - Extremity (Nontraumatic) Medical Decision Making 64yo male presents with right knee pain. Patient reports he tripped over his animal, twisted, and fell on the gravel. States this occurred this afternoon. Reports that the pain is to the outside lower aspect of the right knee. Patient denies previous injury to the knee or any other concerns at this time. Patient is nontoxic in appearance. Vital signs are stable. No fracture or acute bony abnormality noted on the x-ray, pending radiology review. Discussed with patient this is likely a sprain of the LCL. Hinged brace not available, proceeded with elastic wrap and crutches. Recommend rest, ice, elevation, and home medications to help with the pain and discomfort. Referral was placed to Dr. Peres (patient's orthopedist) for recheck as soon as possible. Return precautions provided. Patient states understanding and has no further questions or concerns at this time. Medical Records I reviewed the patient's medical records. Lab Data Radiology Impressions Knee X-Ray 10/12/24 21:47 IMPRESSION: 1. No acute findings. 2. Scattered vascular calcifications. XR interpretation done by ED provider, pending radiology final review ED provider radiology interpretation(s): No fracture or acute bony abnormality noted Discharge Plan Discharge Patient Disposition: Home Clinical Impression: Sprain of LCL (lateral collateral ligament) of knee Qualifiers: Encounter type: initial encounter Laterality: right Qualified Code(s): S83.421A - Sprain of lateral collateral ligament of right knee, initial encounter Condition: Stable Prescriptions: No Action aspirin [Adult Low Dose Aspirin] 81 mg tablet,delayed release (DR/EC) 81 mg PO DAILY acetaminophen [Tylenol] 325 mg tablet 1,000 mg PO QID PRN (Reason: pain) lisinopril 20 mg tablet 40 mg PO DAILY Qty: 90 3RF hydrochlorothiazide 25 mg tablet 25 mg PO DAILY calcium 600 mg Capsule 1,250 mg PO .WEEKLY Discharge Orders: Discharge ED (Routine); Ordered 10/12/24 Ordered By: Lloyd Wong Referrals: Nancy Bryant MD [Primary Care Provider, Family Practice] Discharge Diet: Usual diet Discharge Activity: Increase activity as tolerated Patient Instructions: Knee Sprain in Children (ED), Opioid Safety, Pain Management Activity Restrictions/Additional Instructions: No fracture or acute bony abnormality noted on the x-ray today. There is concern of a sprain of the lateral collateral ligament. Use the provided hinged knee brace to provide support to the knee Rest, ice, and elevate the knee See provided handout with information about LCL ligament sprain rehab exercises A referral has been placed to follow-up with Dr. Peres. 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
--- NOTE | 2024-10-13 07:46 | DCPLANNER ---
messaged ortho for er f/u
== END 2024-10-13 00:07 | disposition home or self-care (01) ==
PROVIDERS: Emergency Provider Nurse Practitioner; PCP Family Medicine
DX: S83.421A Sprain of lateral collateral ligament of right knee, initial encounter (principal); Z79.82 Long term (current) use of aspirin; I10 Essential (primary) hypertension; W01.0XXA Fall on same level from slipping, tripping and stumbling without subsequent striking against object, initial encounter
CPT/HCPCS: 73562; 99283; E0114

== ENCOUNTER → 2024-10-19 09:31 | Outpatient (BNVA) | payer OTHER, SELFPAY | PROVIDERS: PCP Family Medicine; Visit Provider Physician Assistant | DX: S83.421A Sprain of lateral collateral ligament of right knee, initial encounter (principal); S89.91XA Unspecified injury of right lower leg, initial encounter; M23.303 Other meniscus derangements, unspecified medial meniscus, right knee; W01.0XXA Fall on same level from slipping, tripping and stumbling without subsequent striking against object, initial encounter | CPT/HCPCS: 20610; 73560; 73565; 99213; J3301; J9999 ==

== ENCOUNTER 2024-10-25 07:01 | Outpatient (CLI) | payer OTHER, SELFPAY ==
--- NOTE | 2024-10-25 07:15 | MR_ITS ---
WS: [id number] MRI RIGHT KNEE HISTORY: right knee derangement COMPARISON: Radiograph 10/19/2024 Anterior cruciate ligament: Intact. Posterior cruciate ligament: Intact. Medial collateral ligament: Intact. Posterior lateral corner structures: Increased T2 signal in the popliteus tendon adjacent to the femoral condyle. At the insertion site of the popliteus tendon there is a partial tear filled with fluid. No complete tear. Fibular collateral ligament is intact. Medial menisci: Intact. Normal signal, size and shape. Lateral meniscus: Intact. Normal signal, size and shape. Extensor mechanism: Distal quadriceps tendon and patellar tendons are intact. Fluid and soft tissue: There is small joint effusion. There is increased fluid in the posterior knee extending into the intercondylar notch closely associated with the PCL. Tiny Henry's cyst. Osseous and articular structures: Patellofemoral compartment: Normal. Medial compartment: Mild narrowing of the medial compartment. Minimal surface fissuring of the cartilage. No fractures or marrow edema. Lateral compartment: Mild narrowing of the lateral compartment with superficial fissuring and thinning of the cartilage. No full-thickness defect. No fracture or marrow edema. MR/MR knee RT wo con* [id number] IMPRESSION: 1. No fracture or marrow edema. 2. No meniscal tear. 3. No ACL tear. 4. Increased fluid in the intercondylar notch closely associated with the PCL and the medial femoral condyle. 5. Partial tear insertion site of the popliteus tendon with mild heterogeneity in the tendon.
== END 2024-10-25 07:02 | disposition home or self-care (01) ==
LOC: RAD 07:01
PROVIDERS: PCP Family Medicine; Visit Provider Physician Assistant
DX: M23.302 Other meniscus derangements, unspecified lateral meniscus, unspecified knee (principal); S86.811A Strain of other muscle(s) and tendon(s) at lower leg level, right leg, initial encounter; X58.XXXA Exposure to other specified factors, initial encounter
CPT/HCPCS: 73721

== ENCOUNTER 2024-11-09 16:46 | Outpatient (CLI) | payer OTHER, SELFPAY | END 2024-11-09 16:47 | disposition home or self-care (01) | LOC: SPT 16:47 | PROVIDERS: PCP Family Medicine; Visit Provider Student in an Organized Health Care Education/Training Program | DX: Z46.89 Encounter for fitting and adjustment of other specified devices (principal); M23.300 Other meniscus derangements, unspecified lateral meniscus, right knee | CPT/HCPCS: L1812 ==

== ENCOUNTER → 2025-01-10 08:17 | Outpatient (BNVA) | payer OTHER, SELFPAY | PROVIDERS: PCP Family Medicine; Visit Provider Physician Assistant | DX: M65.331 Trigger finger, right middle finger (principal) | CPT/HCPCS: 99214 ==

== ENCOUNTER → 2025-01-26 15:49 | Outpatient (BNVA) | payer OTHER, SELFPAY | PROVIDERS: PCP Family Medicine; Visit Provider Nurse Practitioner Family | DX: L81.4 Other melanin hyperpigmentation (principal); L57.8 Other skin changes due to chronic exposure to nonionizing radiation; D48.5 Neoplasm of uncertain behavior of skin | CPT/HCPCS: 11102; 17000; 99213 ==

== ENCOUNTER 2025-01-27 05:55 | Day surgery (SDC) | payer OTHER, SELFPAY ==
[2025-01-26 09:48] VITALS: BP 134/93; PULSE 56; RESP 18; O2SAT 98
[2025-01-27 06:10] VITALS: BP 163/93; PULSE 56; RESP 18; TEMP 36.3; O2SAT 97; BMI 27.3
[2025-01-27] MEDS: acetaminophen 1,000 MG/100 ML PIGGYBACK 400 MG IV (06:31)
--- NOTE | 2025-01-27 06:49 | W.PM.OPSUD ---
Surgery/Procedure H&P Update DATE OF PROCEDURE: January 27, 2025 DATE H&P PERFORMED: 01/10/25 H&P UPDATE INFORMATION: I have reviewed H&P completed within last 30 days, I have examined patient prior to procedure and No changes to prior documentation PREOP DIAGNOSIS: Right middle finger trigger PRIMARY INDICATION FOR PROCEDURE: Right middle finger trigger PLANNED PROCEDURE: Operation Date: 01/27/25 08:05 Proposed Procedures p RIGHT Middle Finger Trigger Release(Right) - Viet Peres DO
--- NOTE | 2025-01-27 07:26 | ANES.PREANE2 ---
Pre-Anesthetic Assessment Height/Weight: Height 6 ft Weight 202 lb Temp Pulse Resp BP Pulse Ox O2 Del Method 97.3 F L 56 L 18 163/93 97 Room Air 01/27/25 06:10 01/27/25 06:10 01/27/25 06:10 01/27/25 06:10 01/27/25 06:10 01/27/25 06:10 Preop Diagnosis: Right middle finger trigger Operation Date: 01/27/25 08:05 Proposed Procedures p RIGHT Middle Finger Trigger Release(Right) - Viet Peres, DO Was Beta Mendel taken within 24 hours: N/A Was Clonidine taken within 24 hours: N/A Last intake: Intake Last Liquid Date 01/26/25 Last Liquid Time 19:00 Last Solid Date 01/26/25 Last Solid Time 19:00 Social No alcohol and No tobacco Exam alert, oriented x 3, clear to auscultation bilaterally and regular rate & rhythm Airway Submandibular: within normal limits Cervical ROM: within normal limits Mallampati: Class II Dentition: full Anesthetic Plan ASA status: 3 Anesthesia: MAC Other: No prior issues with anesthesia NPO since yesterday evening History of hypertension on lisinopril and hydrochlorothiazide. Preop BP 163/93 Prior EKG showing sinus rhythm with incomplete RBBB Plan for MAC anesthesia with local view surgeon Medications/Allergies Home Medications ?Medication ?Instructions ?Recorded ?Confirmed ?Last Taken ?Type acetaminophen 325 mg tablet 1,000 mg PO QID PRN pain 08/29/21 01/27/25 1 Week Ago History (Tylenol) ~01/20/25 Held on 07/19/24. Instructions: Resume on 07/26/24. aspirin 81 mg tablet,delayed 81 mg PO DAILY 08/29/21 01/26/25 1 Week Ago History release (Adult Low Dose Aspirin) ~01/19/25 lisinopril 20 mg tablet 40 mg (2 x 20 mg) PO DAILY #90 tabs 09/25/21 01/26/25 01/26/25 Rx hydrochlorothiazide 25 mg tablet 25 mg PO DAILY 12/24/23 01/27/25 2 Weeks Ago History ~01/13/25 calcium 600 mg capsule 1,250 mg PO .WEEKLY 07/18/24 01/10/25 3 Months Ago History ~10/27/24 right hinged knee brace #1 ea 11/09/24 01/10/25 Unknown Rx tramadol 50 mg tablet 50 mg PO Q6H PRN pain 5 days #20 01/27/25 Unknown Rx tabs Allergies Allergy/AdvReac Type Severity Reaction Status Date / Time diphenhydramine (From Allergy Unknown Verified 01/10/25 08:49 Benadryl) Current Medications Generic Name Dose Route Start Last Admin Trade Name Freq PRN Reason Stop Dose Admin Sodium Chloride 1,000 mls @ 30 mls/hr 01/27/25 06:00 01/27/25 06:28 Sodium Chloride 0.9% IV 01/28/25 05:59 30 mls/hr .Q24H TAIWO Administration PFS Anesthesia Medical History Hypertension Family History Mother Hypertension Brother Hypertension Social History Smoking and tobacco/nicotine status: never used tobacco/nicotine Alcohol intake: current Alcohol intake frequency: 0-2 Drinks per Day Substance/Drug Use: never Data Anesthesia Cardiac Studies: Echocardiogram 10/04/21
[2025-01-27] MEDS: ROPivacaine 0.5% SDV 30 mL 150 MG INJECTION (07:50)
[2025-01-27] MEDS: ceFAZolin 2,000 MG in sodium chloride 0.9% (plus) 50 ML 100 MG IV (07:58)
--- NOTE | 2025-01-27 08:09 | P.BOP_ITS ---
Date of Procedure: 01/27/2025 Surgeon: Viet Peres DO Reinstatement Clerk(s): None Procedure(s) performed: Right middle finger trigger release Findings of the procedure(s): Underwent procedure as planned without issues or complications Estimated blood loss: 2 mL Specimen(s) removed: None Post-operative diagnosis: Right middle finger trigger
--- NOTE | 2025-01-27 08:10 | PM.OP ---
Operative Report Date of procedure: January 27, 2025 Surgeon: Viet Peres DO Procedure: Preoperative diagnosis: Right middle finger trigger Post-op diagnosis: Same Procedure done: Right?middle?finger?trigger?release Surgeon: Viet Peres DO Estimated blood loss: 2cc Tourniquet time 5mins Complications: None Condition: stable Disposition: same day Brief History: Patient's been seen and worked up in the outpatient setting and findings consistent with preoperative diagnosis of right?middle?finger?trigger.? He is failed conservative treatment.? Continues to have mechanical locking and catching.? Severe pain as well.? We talked about treatment options nonoperative versus operative intervention.? ?Patient understands the risk benefits complication alternatives of surgical nonsurgical treatment options.? Understanding his risks with surgery he elects proceed with surgical intervention.? Consent obtained in the preoperative holding area for right middle finger trigger release.? Here today to proceed with surgical intervention.? All questions answered. Procedure: Patient was seen and evaluated in the preoperative holding area.? Consent was reviewed and signed with patient.? Seen evaluated by Anesthesia Department.? Once cleared for surgery was brought back to the operative suite.? Placed in supine position on the OR table all bony prominences well-padded patient properly secured to the bed.? Patient's right arm was then placed to the armboard.? A nonsterile tourniquet applied to the right upper arm.? Patient's right upper extremity was then prepped and draped in standard orthopedic fashion.? Final timeout performed.? Patient received appropriate preoperative antibiotics. Esmarch tourniquet was used exsanguinate the right upper extremity tourniquet insufflated to 250 mmHg. Under sterile aseptic technique local digital block was performed to the right?middle?finger.? Once appropriately anesthetized a standard oblique incision was made centering over the A1 greta following patient's flexor crease.? Sharp scalpel incision was made only through skin and then switched to Littler dissection scissors and spread longitudinally directly over the flexor tendon sheath.? I then mobilized both radially and ulnarly and Kasdan retractors were used and placed by my expanded duty dental assistant to protect neurovascular bundle.? Next I visualized the A1 greta and this was incised with a scalpel.? I then switched to dissection scissors and released the A1 greta both proximally as well as distally to its entirety.? Significant tendon sheath fluid was noted consistent with inflammation.? Mild fraying of the flexor tendons noted but no tear.? At this point I utilized a rag nail and pulled the tendons FDS and FDP out of the incision and no?triggering was noted.? I then had anesthesia wake up the patient and patient was able to actively flex and extend with no?triggering.? This point thorough irrigation was performed.? Tourniquet deflated hemostasis satisfactory with bipolar.? I then subsequently closed the incision with interrupted nylon suture.? Xeroform 4 x 4's, Kerlix and an Obed wrap was applied for a bulky soft dressing.? Patient was then subsequently awakened from anesthesia and taken to PACU in stable condition tolerated procedure without issues. Disposition: Patient taken back in stable condition recovering well.? Patient will receive appropriate discharge instruction as well as pain medication postoperatively.? Patient to follow-up with me in the office in 2 weeks for repeat evaluation and incision check.? Patient understands that any questions or concerns and contact the office.? All questions answered.
[2025-01-27 08:12] VITALS: BP 145/90; PULSE 51; RESP 16; TEMP 36.1; O2SAT 98
[2025-01-27 08:17] VITALS: BP 136/92; PULSE 54; RESP 16; O2SAT 94
[2025-01-27 08:22] VITALS: BP 155/95; PULSE 50; RESP 16; O2SAT 97
[2025-01-27 08:27] VITALS: BP 144/108; PULSE 49; RESP 18; O2SAT 96
[2025-01-27 08:30] VITALS: BP 147/93; PULSE 51; RESP 18; TEMP 36.1; O2SAT 97
--- NOTE | 2025-01-27 09:03 | ANE.PACU2 ---
Inpatient post-anesthesia follow up: Airway intact: Yes Vital signs: Temperature 97.0 F Pulse Rate 51 Respiratory Rate 18 Blood Pressure 147/93 Pulse Oximetry 97 Oxygen Delivery Me thod Room Air Oxygen Flow Rate Fraction of Inspir ed Oxygen Hydration adequate: Yes Nausea and vomiting: No Pain level: 1 Mental status: Baseline
== END 2025-01-27 09:04 | disposition home or self-care (01) ==
PROVIDERS: PCP Family Medicine; Visit Provider Student in an Organized Health Care Education/Training Program
PROC: (CPT 26055; principal; 2025-01-27 08:05)
DX: M65.331 Trigger finger, right middle finger (principal); I10 Essential (primary) hypertension; Z79.82 Long term (current) use of aspirin
CPT/HCPCS: 26055; J0131; J0690; J1885; J2704; J2795; J3010; J7030; J9999

== ENCOUNTER 2025-02-08 13:50 | Emergency (ER) | payer OTHER, SELFPAY ==
[2025-02-08 13:52] VITALS: BP 172/106; PULSE 76; TEMP 36.4; O2SAT 95; BMI 28.2
[2025-02-08 15:30] VITALS: O2SAT 97
[2025-02-08 15:31] LABS: Hematocrit 46.0 % (37-53); Hemoglobin 16.20 g/dL (11.27-16.99); Mean Corpuscular HGB Conc 35.2 g/dL (30-55); Mean Corpuscular Hemoglobin 30.6 pg (27-33); Mean Corpuscular Volume 86.8 fl (82-101); Nucleated Red Blood Cells % 0 %; Platelet Count 200 10^3/cmm (157-399); Red Blood Count 5.30 10^6/uL (3.85-5.65); White Blood Count 8.33 10^3/uL (3.29-11.43)
[2025-02-08 15:47] LABS: Alanine Aminotransferase 18 U/L (0-41); Albumin Level 4.2 g/dL (3.5-5.2); Alkaline Phosphatase 60 U/L (40-130); Anion Gap 16.2 (5-19); Aspartate Amino Transferase 16 U/L (0-40); Blood Urea Nitrogen 17 mg/dL (8-23); Calcium 9.2 mg/dL (8.5-10.5); Carbon Dioxide 23 mmol/L (22-29); Chloride 101 mmol/L (98-107); Creatinine Clr Calc Pharmacy 109.7641; Globulin 2.1 g/dL (1.3-4.6); Glucose 96 mg/dL (65-115); Lipase 22 U/L (13-60); Osmolality Calculated 283 mOsm/kg (285-295); Potassium 4.2 mmol/L (3.5-5.1); Sodium 136 mmol/L (136-145); Total Protein 6.3 g/dL (6.6-8.7)
[2025-02-08 15:48] LABS: Glucose Urine UA Negative (Normal); Nitrate Urine Negative (Negative); Specific Gravity, Urine 1.016 (1.005-1.030)
[2025-02-08 15:53] LABS: Add Urine Microscopic? YES
--- NOTE | 2025-02-08 16:39 | PC.PHAR ---
Pt states his new rx for HCTZ 25mg daily is for sleep. [facility] and [facility] with last fill date and day supply.
[2025-02-08 16:51] VITALS: BP 167/96; PULSE 65; RESP 16; O2SAT 95
--- NOTE | 2025-02-08 17:54 | W.ED.ABDPA2 ---
HPI - Abdominal Pain General: Chief Complaint: Abdominal Pain Stated Complaint: Low back and stomach pain Time Seen by Provider: 02/08/25 14:31 History of Present Illness: 64-year-old male presents emergency room complaining of low back pain and some right sided abdominal pain no fever sweats chills appetite has been good. No dysuria urgency or frequency. Patient has had nephrolithiasis in the past states this does not feel like a kidney stone. No vomiting no diarrhea no hematochezia melena hematemesis coffee-ground emesis Associated Symptoms: Denies chills, coffee ground emesis, dysuria, fever(s), hematochezia, hematemesis, melena, nausea and vomiting Related Data Home Medications ?Medication ?Instructions ?Recorded ?Confirmed acetaminophen 325 mg tablet 1,000 mg PO QID PRN pain 08/29/21 02/08/25 (Tylenol) aspirin 81 mg tablet,delayed 81 mg PO DAILY 08/29/21 02/08/25 release (Adult Low Dose Aspirin) amlodipine 5 mg tablet 5 mg PO DAILY 02/08/25 02/08/25 hydroxyzine HCl 10 mg tablet 10 mg PO TID PRN Anxiety 02/08/25 02/08/25 ibuprofen 200 mg tablet 200 mg PO Q6H PRN Pain 02/08/25 02/08/25 naproxen sodium 220 mg tablet 220 mg PO BID PRN Pain 02/08/25 02/08/25 olopatadine 0.2 % eye drops 1 drp ophthalmic (eye) DAILY 02/08/25 02/08/25 ondansetron 4 mg disintegrating 4 mg PO Q8H PRN Nausea And Vomiting 02/08/25 02/08/25 tablet tramadol 50 mg tablet 50 mg PO Q6H PRN Pain 02/08/25 02/08/25 Previous Rx's ?Medication ?Instructions ?Recorded lisinopril 20 mg tablet 40 mg (2 x 20 mg) PO DAILY #90 tabs 09/25/21 right hinged knee brace #1 ea 11/09/24 diclofenac sodium 75 mg 75 mg PO Q12H PRN pain #20 tabs 02/08/25 tablet,delayed release Allergies Allergy/AdvReac Type Severity Reaction Status Date / Time diphenhydramine (From Allergy Unknown Verified 02/08/25 13:56 Benadryl) Review of Systems Const: Denies: fever(s) or chills Card: Denies: chest pain Resp: Denies: dyspnea GI: Reports: abdominal pain; Denies: nausea, vomiting, hematemesis, coffee ground emesis, hematochezia or melena : Denies: dysuria, urinary frequency or urinary urgency Musc: Reports: back pain; Denies: neck pain Skin/Breast: Denies: rash PFSH ED PFSH: Medical History Hypertension Family History Mother Hypertension Brother Hypertension Social History Smoking and tobacco/nicotine status: never used tobacco/nicotine Alcohol intake: current Alcohol intake frequency: 0-2 Drinks per Day Substance/Drug Use: never Physical Exam Const: GENERAL APPEARANCE: cooperative ORIENTATION/CONSCIOUSNESS: Yes awake, Yes oriented to person, Yes oriented to place and Yes oriented to time HENMT: COMMON NORMALS: normocephalic, atraumatic and hearing grossly normal bilaterally HEAD & SCALP: normocephalic and atraumatic Resp: COMMON NORMALS: normal respiratory effort, No retractions, No use of accessory muscles and clear to auscultation bilaterally AUSCULTATION: clear to auscultation bilaterally Cardio: COMMON NORMALS: regular rate, regular rhythm and No murmurs present (Cardio) RATE: regular rate RHYTHM: regular rhythm GI: COMMON NORMALS: Soft to palpation and No hepatosplenomegaly present AUSCULTATION: Yes normoactive bowel sounds PALPATION: Yes Soft to palpation, No Tenderness to palpation present (GI), No Guarding due to palpation present (GI) and Yes No hepatosplenomegaly present Extremity: COMMON NORMALS: normal to inspection, capillary refill normal, no clubbing, cyanosis or edema, no calf tenderness and no pedal edema Neuro: SENSORIUM/ORIENTATION: Yes oriented to person, Yes oriented to place and Yes oriented to time Skin: COMMON NORMALS: no rashes or lesions noted GENERAL SKIN EXAM: no rashes or lesions noted Course Vital Signs: Vital signs: Vital Signs Temperature 97.5 F L 02/08/25 13:52 Pulse Rate 65 02/08/25 16:51 Respiratory Rate 16 02/08/25 16:51 Blood Pressure 167/96 02/08/25 16:51 Pulse Oximetry 95 02/08/25 16:51 Oxygen Delivery Me thod Room Air 02/08/25 15:30 MDM - Abdominal Pain Medical Decision Making Abdominal exam is benign patient's pain is located to the posterior superior iliac crest and right sided paraspinal muscles at the level of the lower lumbar spine. CBC white count chemistries normal. No findings on exam suggestive of peritonitis. Will discharge patient home diclofenac use. Follow-up with primary care if not back pain is not improving Medical Records I reviewed the patient's medical records. Lab Data I reviewed the patient's lab results. 02/08/25 15:23 02/08/25 15: Labs/Radiology: Laboratory Results WBC 8.33 10^3/uL (3.29-11.43) 02/08/25 15: RBC 5.30 10^6/uL (3.85-5.65) 02/08/25: Hgb 16.20 g/dL (11.27-16.99) 02/08/25 15: Hct 46.0 % (37-53) 02/08/25: MCV 86.8 fl (82-101) 02/08/25: MCH 30.6 pg (27-33) 02/08/25 15: MCHC 35.2 g/dL (30-55) 02/08/25 15: RDW 12.8 % (12.1-15.1) 02/08/25: Plt Count 200 10^3/cmm (157-399) 02/08/25 15: MPV 9.5 fL (7.4-10.4) 02/08/25 15: Neut % (Auto) 69.3 % 02/08/25: Lymph % (Auto) 20.9 % 02/08/25: [place] % (Auto) 6.5 % 02/08/25 15: Eos % (Auto) 2.6 % 02/08/25: Baso % (Auto) 0.5 % 02/08/25: Neut # (Auto) 5.77 10^3/uL (1.8-7.7) 02/08/25 15: Lymph # (Auto) 1.7 10^3/uL (0.8-4.8) 02/08/25: [place] # (Auto) 0.5 10^3/uL (0.2-0.9) 02/08/25 15: Eos # (Auto) 0.2 10^3/uL (0.0-0.8) 02/08/25: Baso # (Auto) 0.0 10^3/uL (0.0-0.1) 02/08/25: Nucleated RBC % (auto) 0 % 02/08/25 Nucleated RBCs # 0.0 /100WBC 02/08/25: Sodium 136 mmol/L (136-145) 02/08/25: Potassium 4.2 mmol/L (3.5-5.1) 02/08/25: Chloride 101 mmol/L (98-107) 02/08/25: Carbon Dioxide 23 mmol/L (22-29) 02/08/25 15: Anion Gap 16.2 (5-19) 02/08/25 15: BUN 17 mg/dL (8-23) 02/08/25: Creatinine 0.8 mg/dL (0.7-1.2) 02/08/25 15: GFR Calculation 97.0 mL/min (90-130) 02/08/25: Glucose 96 mg/dL (65-115) 02/08/25: Calculated Osmolality 283 mOsm/kg (285-295) L 02/08/25: Calcium 9.2 mg/dL (8.5-10.5) 02/08/25: Total Bilirubin 1.2 mg/dL (0.15-1.2) 02/08/25: AST 16 U/L (0-40) 02/08/25: ALT 18 U/L (0-41) 02/08/25 15: Alkaline Phosphatase 60 U/L (40-130) 02/08/25 15: Total Protein 6.3 g/dL (6.6-8.7) L 02/08/25: Albumin 4.2 g/dL (3.5-5.2) 02/08/25 15: Globulin 2.1 g/dL (1.3-4.6) 02/08/25: Lipase 22 U/L (13-60) 02/08/25 15: Urine Color Yellow (Yellow) 02/08/25 15:30 Urine Appearance Clear (CLEAR) 02/08/25 15: Urine pH 6.5 (5-7) 02/08/25 15: Ur Specific [place] 1.016 (1.005-1.030) 02/08/25 15:30 Urine Protein Negative (Negative) 02/08/25 15:30 Urine Glucose (UA) Negative (Normal) 02/08/25 15: Urine Ketones Negative (Negative) 02/08/25 15: Urine Blood Negative (Negative) 02/08/25 15: Urine Nitrate Negative (Negative) 02/08/25 15:30 Urine Bilirubin Negative (Negative) 02/08/25: Urine Urobilinogen 1.0 mg/dL (Negative) 02/08/25 15:30 Ur Leukocyte Esterase Trace (Negative) A 02/08/25 15:30 Urine RBC 0-2 /hpf (0-2) 02/08/25 15:30 Urine WBC 0-5 /hpf (0-5) 02/08/25 15:30 Ur Squamous Epith Cells 0-5 /hpf (0-5) 02/08/25 15:30 Amorphous Sediment Not Reportable 02/08/25 15:30 Urine Bacteria None seen /hpf (NONE) 02/08/25 15: Hyaline Casts 0-4 /lpf H 02/08/25 15:30 No radiology studies performed this visit Discharge Plan Discharge Patient Disposition: Home Clinical Impression: Back pain Condition: Stable Prescriptions: New diclofenac sodium 75 mg tablet,delayed release (DR/EC) 75 mg PO Q12H PRN (Reason: pain) Qty: 20 0RF No Action aspirin [Adult Low Dose Aspirin] 81 mg tablet,delayed release (DR/EC) 81 mg PO DAILY acetaminophen [Tylenol] 325 mg tablet 1,000 mg PO QID PRN (Reason: pain) lisinopril 20 mg tablet 40 mg PO DAILY Qty: 90 3RF (DME) right hinged knee brace See Rx Instructions .Route .MEDSUPPLY Qty: 1 0RF Rx Instructions: As directed amlodipine 5 mg Tablet 5 mg PO DAILY tramadol 50 mg tablet 50 mg PO Q6H PRN (Reason: Pain) naproxen sodium 220 mg Tablet 220 mg PO BID PRN (Reason: Pain) ibuprofen 200 mg Tablet 200 mg PO Q6H PRN (Reason: Pain) hydroxyzine HCl 10 mg tablet 10 mg PO TID PRN (Reason: Anxiety) ondansetron 4 mg tablet,disintegrating 4 mg PO Q8H PRN (Reason: Nausea And Vomiting) olopatadine 0.2 % Drops 1 drp OPHTHALMIC (EYE) DAILY Discharge Orders: Discharge ED (Routine); Ordered 02/08/25 Ordered By: Alan Good Referrals: Nancy Bryant MD [Primary Care Provider, Family Practice] Discharge Diet: Usual diet Discharge Activity: Increase activity as tolerated Patient Instructions: Acute Low Back Pain (ED), Opioid Safety, Pain Management, Patient Portal & Leslie Instructions Activity Restrictions/Additional Instructions: Thank you for choosing [facility] for your healthcare needs today. It is very important that you follow up as instructed or that you return to the Emergency Department should you have concerns or if your condition changes or worsens in any way. Emergency department visits are focused on emergent conditions, in some cases you may require further evaluation on an outpatient basis. You are seen in the emergency room with complaint of low back pain. Urine white blood cell counts were normal. There is no sign of kidney stone bladder infection. He also has expressed concern about a possible appendicitis there is no sign on your exam or in your laboratories to suggest appendicitis at this time. Suspect the majority your symptoms are due to musculoskeletal low back pain. You can use diclofenac as needed. If your symptoms worsen or change follow-up with your primary care doctor. (Please note that included in your discharge packet is information concerning opioid safety and pain management. This information is given to all patients were discharged from the ER regardless of their discharge diagnosis or the medicines they usually take or are prescribed.) Print Language: Italian Coding Level of Care Code ED Senior Instructional Designer for [place] White
== END 2025-02-08 16:52 | disposition home or self-care (01) ==
PROVIDERS: Emergency Provider Family Medicine; PCP Family Medicine
DX: M54.9 Dorsalgia, unspecified (principal); Z79.82 Long term (current) use of aspirin; I10 Essential (primary) hypertension
CPT/HCPCS: 36415; 80053; 81001; 83690; 85025; 99283

== ENCOUNTER → 2025-02-10 10:18 | Outpatient (BNVA) | payer OTHER, SELFPAY | PROVIDERS: PCP Family Medicine; Visit Provider Physician Assistant | DX: Z98.890 Other specified postprocedural states (principal); Z09 Encounter for follow-up examination after completed treatment for conditions other than malignant neoplasm | CPT/HCPCS: 99024 ==